=== PATIENT | male | born 1940 | race Caucasian/White ===

== ENCOUNTER 2023-07-27 10:26 | Emergency (ER) | payer OTHER, SELFPAY ==
[2023-07-27 10:33] VITALS: BP 147/64
--- NOTE | 2023-07-27 10:36 | ED.GENMED ---
History of Present Illness
General
Chief Complaint: Musculo-Skeletal Complaint
Time Seen by Provider: 07/27/23 10:28
History of Present Illness
History of Present Illness:
82-year-old male with history of dementia, hypertension, and hyperlipidemia arrives via EMS for evaluation after a fall. No further historical details were provided by the EMS crew and the patient cannot provide any details. He states 'I just went
down'. Laughing frequently on exam, unable to provide any further details. He denies any pain. There is a clear external rotation of the right lower extremity
Review of Systems
Review of Systems
Allergies reviewed?: Yes
Unable to obtain full review of systems at this time due to: dementia
Phy Exam
Physical Exam
Physical Exam:
GEN: Well appearing, NAD, WDWN
Eyes: PERRLA, EOMs intact, no scleral icterus
HENT: NCAT, oral mucosa moist, no JVD, no cervical adenopathy.
Lungs: CTAB, no wheezes, rales, rhonchi, normal chest wall excursion
Cardiac: RRR, no M/R/G, no peripheral edema. Radial pulses 2+ bilat
Abdomen: S, NT, ND, NABS, no masses or hepatosplenomegaly
Neuro: Alert, follows commands, profoundly disoriented
MSK: External rotation of the right lower extremity with diffuse swelling of the proximal right knee, patient with no response to pain on palpation
Skin: No rashes, petechiae. Normal color, no pallor or jaundice.
Psych: Calm, cooperative, proper hygiene
Course
Orders/Labs/Results
Orders:
Orders
07/27/23 10:35
CT Head W/o Iv Contrast Urgent
Comment:
Reason For Exam: fall
CR Chest Single View Urgent
Comment:
Reason For Exam: fall
CR Femur - Right Min 2 Vw Urgent
Comment:
Reason For Exam: fall, RLE deformity
CR Hip - RT w/wo Pel 2-3 Vw* Urgent
Comment:
Reason For Exam: fall, RLE deformity
Include a pelvis x-ray?: Yes
07/27/23 12:03
Complete Blood Count/With Diff Urgent
Comprehensive Metabolic Panel Urgent
07/27/23 12:24
CR Knee- Right 4 Or More View* Urgent
Comment:
Reason For Exam: fall
Abnormal Lab Results
07/27/23
12:03
WBC 12.5 H 10^3/uL
(4.8-10.8)
RBC 4.37 L 10^6/uL
(4.70-6.10)
Hct 38.7 L %
(39.0-52.0)
MCH 31.1 H pg
(27.0-31.0)
Absolute Neuts (auto) 9.9 H 10^3/uL
(1.4-6.5)
Absolute Monos (auto) 1.0 H 10^3/uL
(0.1-0.6)
Neutrophils % 78.6 H %
(42.2-75.2)
Lymphocytes % 10.9 L %
(20.5-51.1)
BUN 31 H mg/dl
(9-20)
Glucose 105 H mg/dl
(70-99)
Total Bilirubin 2.2 H mg/dl
(0.2-1.3)
07/27/23 12:03
07/27/23 12:03
Vital Signs
Initial and Last Documented VS:
Initial Vital Signs
Temp Pulse Resp BP Pulse Ox
98.1 F 69 20 147/64 95
07/27/23 10:33 07/27/23 10:33 07/27/23 10:33 07/27/23 10:33 07/27/23 10:33
Last Documented Vital Signs
Temp Pulse Resp BP Pulse Ox
98.1 F 69 20 165/71 83
07/27/23 10:33 07/27/23 10:33 07/27/23 10:33 07/27/23 15:45 07/27/23 15:46
MDM/Problems Addressed
MDM/Problems Addressed:
History is not obtained from the patient as he can provide essentially no details of the. Imaging reveals no major acute injuries with the exception of a nondisplaced right patellar fracture. Discussed the findings with orthopedics, patient will
be placed in a knee immobilizer, strictly advised his nursing facility that he must maintain this at all times until orthopedic follow-up in 1 week
*Critical Care Note
Total Time (30-74mins, 75-104mins- exclusive of procedures): Not Applicable
ED Attending Note
-
Portions of this chart may have been created with voice recognition software.� Occasional wrong word or��sound alike� substitutions may have occurred due to the inherent limitations of voice recognition software.
Discharge Plan
Departure
Patient Disposition: Home (Routine Discharge)
Date of Disposition: 07/27/23
Time of Disposition: 15:31
Patient with high blood pressure during this ER visit?: No
Discharge Problem:
Closed nondisplaced fracture of right patella
Instructions: Patella Fracture (DC)
Prescriptions:
No Action
acetaminophen [Tylenol] 325 mg Tablet
650 mg PO Q8HPRN PRN (Reason: MILD PAIN)
atorvastatin [Lipitor] 20 mg Tablet
20 mg PO DAILY
cyanocobalamin (vitamin B-12) 1,000 mcg Tablet
1,000 mcg PO DAILY
therapeutic multivitamin Tablet
1 tab PO DAILY
calcium carbonate [Calcium 600] 600 mg calcium (1,500 mg) Tablet
600 mg PO DAILY
amlodipine [Norvasc] 10 mg Tablet
10 mg PO .DAILY AT 8PM
folic acid 1 mg Tablet
1 mg PO DAILY
sertraline 50 mg Tablet
75 mg PO DAILY
Refresh Optive 0.5-0.9 % Drops
1 drp BOTH EYES BIDPRN PRN (Reason: DRYNESS)
lisinopril-hydrochlorothiazide 20-25 mg Tablet
1 tab PO DAILY
furosemide 20 mg Tablet
20 mg PO .DAILY MOTUWETHFR
ipratropium-albuterol 0.5 mg-3 mg(2.5 mg base)/3 mL Solution For Nebulization
3 ml inhalation R Q4HPRN PRN (Reason: SOB or wheezing) Qty: 90 1RF
Referrals:
Karl Trivedi MD [Active] - Follow up in 1 week
Activity Restrictions/Additional Instructions:
Needs to follow up with Orthopedics in 1 week for re-evaluation
Must wear knee immobilizer at all times
Interventions
Interventions:
*Risk Screen - Suicide Last Done: 07/27/23 10:33
*General Assessment Last Done: 07/27/23 10:33
*Neglect/Abuse Screening Last Done: 07/27/23 10:33
ED- Fall Risk Assessment Last Done: 07/27/23 10:33
*ED COVID-19 Vaccine History Last Done: 07/27/23 10:33
ED-Musculoskeletal Assessment Last Done: 07/27/23 10:33
[2023-07-27 11:36] VITALS: BP 145/74
[2023-07-27 12:00] VITALS: BP 156/61
[2023-07-27 12:22] LABS: % Basophils 0.2 % (0-2); % Eosinophils 1.7 % (0-6); % Immature Granulocytes 0.3 % (0-0.5); % Lymphocytes 10.9 % (20.5-51.1); % Monocytes 8.3 % (1.7-9.3); % Neutrophils 78.6 % (42.2-75.2); Absolute Eosinophils 0.2 10^3/uL (0-0.7); Absolute Lymphocytes 1.4 10^3/uL (1.2-3.4); Absolute Neutrophils 9.9 10^3/uL (1.4-6.5); Hematocrit 38.7 % (39.0-52.0); Hemoglobin 13.6 g/dL (13.0-18.0); Mean Corp Hgb Conc. 35.1 g/dL (33.0-37.0); Mean Corpuscular Hgb 31.1 pg (27.0-31.0); Mean Corpuscular Volume 88.6 fL (80.0-94.0); Mean Platelet Volume 9.3 fL (7.4-10.4); Nucleated Red Blood Cells % 0 % (-); Platelet Count 158 10^3/uL (130-400); Red Blood Cell Count 4.37 10^6/uL (4.70-6.10); Red Cell Dist. Width 12.7 % (11.5-14.5); White Blood Cell Count 12.5 10^3/uL (4.8-10.8)
[2023-07-27 12:32] LABS: ALT (SGPT) 28 U/L (0-50); AST (SGOT) 45 U/L (17-59); Albumin 4.3 g/dl (3.5-5.0); Alkaline Phosphatase 72 U/L (38-126); Blood Urea Nitrogen 31 mg/dl (9-20); Calcium 9.2 mg/dl (8.4-10.2); Carbon Dioxide 28 mmol/L (22-30); Chloride 99 mmol/L (98-107); Estimated Creatinine Clearance 71 ml/min; Glucose 105 mg/dl (70-99); Potassium 3.6 mmol/L (3.5-5.1); Sodium 135 mmol/L (135-145); Total Bilirubin 2.2 mg/dl (0.2-1.3); Total Protein 7.3 g/dl (6.3-8.2); eGFR > 60.00
[2023-07-27 13:18] VITALS: BP 148/68
[2023-07-27 15:45] VITALS: BP 165/71
== END 2023-07-27 17:29 | disposition home or self-care (01) ==
LOC: EMR 10:26
PROVIDERS: Physician Assistant; EMERGENCY PHYSICIAN Emergency Medicine
DX: S82.091A Other fracture of right patella, initial encounter for closed fracture (principal); W19.XXXA Unspecified fall, initial encounter; I10 Essential (primary) hypertension; E78.5 Hyperlipidemia, unspecified
CPT/HCPCS: 29505; 70450; 71045; 73502; 73552; 73564; 80053; 85025; 99283

== ENCOUNTER 2023-09-27 09:45 | Emergency (ER) | payer OTHER, SELFPAY ==
[2023-09-27 10:00] VITALS: BP 121/66
[2023-09-27 10:02] VITALS: BP 121/66
[2023-09-27 10:17] LABS: % Basophils 0.1 % (0-2); % Eosinophils 0.9 % (0-6); % Immature Granulocytes 0.4 % (0-0.5); % Lymphocytes 7.5 % (20.5-51.1); % Monocytes 4.1 % (1.7-9.3); Absolute Eosinophils 0.1 10^3/uL (0-0.7); Absolute Lymphocytes 0.8 10^3/uL (1.2-3.4); Absolute Monocytes 0.4 10^3/uL (0.1-0.6); Absolute Neutrophils 8.8 10^3/uL (1.4-6.5); Hematocrit 36.8 % (39.0-52.0); Hemoglobin 12.6 g/dL (13.0-18.0); Mean Corp Hgb Conc. 34.2 g/dL (33.0-37.0); Mean Corpuscular Hgb 30.6 pg (27.0-31.0); Mean Corpuscular Volume 89.3 fL (80.0-94.0); Mean Platelet Volume 8.8 fL (7.4-10.4); Nucleated Red Blood Cells % 0 % (-); Platelet Count 259 10^3/uL (130-400); Red Blood Cell Count 4.12 10^6/uL (4.70-6.10); Red Cell Dist. Width 12.7 % (11.5-14.5); White Blood Cell Count 10.1 10^3/uL (4.8-10.8)
[2023-09-27 10:31] LABS: ALT (SGPT) 25 U/L (0-50); AST (SGOT) 25 U/L (17-59); Albumin 3.6 g/dl (3.5-5.0); Alkaline Phosphatase 87 U/L (38-126); Blood Urea Nitrogen 22 mg/dl (9-20); Calcium 8.9 mg/dl (8.4-10.2); Carbon Dioxide 29 mmol/L (22-30); Chloride 104 mmol/L (98-107); Glucose 124 mg/dl (70-99); Sodium 136 mmol/L (135-145); Total Bilirubin 1.2 mg/dl (0.2-1.3); Total Protein 6.4 g/dl (6.3-8.2); eGFR > 60.00
--- NOTE | 2023-09-27 10:40 | ED.GENMED ---
History of Present Illness
<Mechelle Horn [facility] - Last Filed: 09/27/23 13:28>
General
Chief Complaint: Seizure
Source: patient
Exam Limitations: dementia
Time Seen by Provider: 09/27/23 10:15
Travel History
Have you had any contact with someone who has COVID-19?: Unable to Answer
Do you have any symptoms of coronavirus? Fever > 100 degrees, chills, cough, shortness of breath, sore throat, loss of taste or smell, muscle aches, or headache?: Unable to Answer
History of Present Illness
History of Present Illness:
Patient is an 82 year old male with PMH of dementia and HTN reports seizure at [facility] this morning. Patient reports loss of consciousness for an unknown amount of time. Patient reports vomiting on himself. Patient denies head trauma.
He denies previous episodes like this. He reports he is back to his baseline. Denies headache, changes in vision, weakness, tingling.
Phy Exam
<Mechelle Horn [facility] - Last Filed: 09/27/23 13:28>
General Physical Exam
General Presentation: well appearing
General age: appears stated age
General Skin: warm
General Habitus: normal
General Mental: usual mental status
General Hydration: appears well hydrated
Neurological Exam
Neurological Exam: alert (at baseline), CN II-XII intact, no motor deficits, no sensory deficits, speech normal and confused
Course
<Mechelle Horn [facility] - Last Filed: 09/27/23 13:28>
Orders/Labs/Results
Orders:
Orders
09/27/23 09:47
CT Head W/o Iv Contrast Urgent
Comment:
Reason For Exam: seizure
09/27/23 10:02
Complete Blood Count/With Diff Urgent
Comprehensive Metabolic Panel Urgent
Abnormal Lab Results
09/27/23
10:02
RBC 4.12 L 10^6/uL
(4.70-6.10)
Hgb 12.6 L g/dL
(13.0-18.0)
Hct 36.8 L %
(39.0-52.0)
Absolute Neuts (auto) 8.8 H 10^3/uL
(1.4-6.5)
Absolute Lymphs (auto) 0.8 L 10^3/uL
(1.2-3.4)
Neutrophils % 87.0 H %
(42.2-75.2)
Lymphocytes % 7.5 L %
(20.5-51.1)
BUN 22 H mg/dl
(9-20)
Glucose 124 H mg/dl
(70-99)
09/27/23 10:02
09/27/23 10:02
Vital Signs
Initial and Last Documented VS:
Initial Vital Signs
Pulse Resp
57 20
09/27/23 09:55 09/27/23 09:55
Last Documented Vital Signs
Temp Pulse Resp BP Pulse Ox
97.7 F 68 24 121/66 96
09/27/23 10:02 09/27/23 12:00 09/27/23 12:00 09/27/23 10:02 09/27/23 11:45
<Jacky Beaver, - Last Filed: 09/27/23 13:46>
Orders/Labs/Results
Orders:
Orders
09/27/23 09:47
CT Head W/o Iv Contrast Urgent
Comment:
Reason For Exam: seizure
09/27/23 10:02
Complete Blood Count/With Diff Urgent
Comprehensive Metabolic Panel Urgent
Abnormal Lab Results
09/27/23
10:02
RBC 4.12 L 10^6/uL
(4.70-6.10)
Hgb 12.6 L g/dL
(13.0-18.0)
Hct 36.8 L %
(39.0-52.0)
Absolute Neuts (auto) 8.8 H 10^3/uL
(1.4-6.5)
Absolute Lymphs (auto) 0.8 L 10^3/uL
(1.2-3.4)
Neutrophils % 87.0 H %
(42.2-75.2)
Lymphocytes % 7.5 L %
(20.5-51.1)
BUN 22 H mg/dl
(9-20)
Glucose 124 H mg/dl
(70-99)
09/27/23 10:02
09/27/23 10:02
Vital Signs
Initial and Last Documented VS:
Initial Vital Signs
Pulse Resp
57 20
09/27/23 09:55 09/27/23 09:55
Last Documented Vital Signs
Temp Pulse Resp BP Pulse Ox
97.7 F 68 24 121/66 96
09/27/23 10:02 09/27/23 12:00 09/27/23 12:00 09/27/23 10:02 09/27/23 11:45
ED Attending Note
<ZAK Romero - Last Filed: 09/27/23 13:28>
-
Portions of this chart may have been created with voice recognition software.� Occasional wrong word or��sound alike� substitutions may have occurred due to the inherent limitations of voice recognition software.
<Jacky Beaver DO - Last Filed: 09/27/23 13:46>
ED Attending Note
Patient seen and examined by attending physician: Yes
I performed a history and physical exam of patient and discussed management with resident, I reviewed resident's note and agree with documented findings and plan of care.: Yes
ED Attending Note:
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 Patient Is reportedly back to his baseline at this time. Patient denies
headache, neck or back pain. Patient denies chest or abdominal pain. Patient denies feeling short of breath. Patient denies fever or chills. Patient denies any GI or symptoms. Patient denies any extremity pain. On physical exam patient
neurologically is intact except for disorientation due to dementia. Patient does have frontal release signs. Heart is regular lungs are clear. Abdomen soft nontender. Patient CT is unremarkable. Patient's labs are unremarkable. Patient appears
to have an seizure or syncopal episode and will be sent back to assisted.
Discharge Plan
Departure
Patient Disposition: Long Term/SNF
Date of Disposition: 09/27/23
Time of Disposition: 13:44
Patient with high blood pressure during this ER visit?: No
Condition: Good
Covid-19: Not Applicable
Discharge Problem:
Syncope, Dementia
Instructions: Seizures, Adult (DC), Syncope (Fainting) (DC)
Prescriptions:
No Action
acetaminophen [Tylenol] 325 mg Tablet
650 mg PO Q6H PRN (Reason: mild pain)
atorvastatin [Lipitor] 20 mg Tablet
20 mg PO DAILY
amlodipine [Norvasc] 10 mg Tablet
10 mg PO QPM
folic acid 1 mg Tablet
1 mg PO DAILY
sertraline 50 mg Tablet
75 mg PO DAILY
lisinopril-hydrochlorothiazide 20-25 mg Tablet
1 tab PO DAILY
furosemide 20 mg Tablet
20 mg PO DAILY
multivitamin [Daily-Alysa] Tablet
1 tab PO DAILY
cyanocobalamin (vitamin B-12) [Vitamin B-12] 1,000 mcg Tablet
1,000 mcg PO DAILY
calcium carbonate [Calcium 600] 600 mg calcium (1,500 mg) Tablet
600 mg PO DAILY
carboxymethylcellulose sodium [Refresh Tears] 0.5 % Drops
1 drp BOTH EYES DAILY PRN (Reason: dry eyes)
Referrals:
Anna Elias, DO [Family Provider] - As needed
Activity Restrictions/Additional Instructions:
Continue present medications and therapy.
Interventions
Interventions:
*Risk Screen - Suicide Last Done: 09/27/23 10:03
*General Assessment Last Done: 09/27/23 10:03
*Neglect/Abuse Screening Last Done: 09/27/23 10:03
*ED COVID-19 Vaccine History Last Done: 09/27/23 10:03
ED- Cardiac Assessment Last Done: 09/27/23 10:04
ED- Neurological Assessment Last Done: 09/27/23 10:04
ED- Pulmonary Assessment Last Done: 09/27/23 10:04
[2023-09-27 13:46] VITALS: BP 119/69
[2023-09-27 14:00] VITALS: BP 126/66
== END 2023-09-27 15:51 ==
LOC: EMR 09:45
PROVIDERS: EMERGENCY PHYSICIAN Emergency Medicine; FAMILY PHYSICIAN Hospitalist
DX: R55 Syncope and collapse (principal); I10 Essential (primary) hypertension; F03.90 Unspecified dementia, unspecified severity, without behavioral disturbance, psychotic disturbance, mood disturbance, and anxiety
CPT/HCPCS: 99285; 70450; 80053; 85025; 93005

== ENCOUNTER 2023-09-28 18:43 | Observation (INO) | payer OTHER, SELFPAY ==
[2023-09-28] VITALS (8 sets, daily range): BP systolic 120–149; BP diastolic 64–76; BMI 34.7
--- NOTE | 2023-09-28 15:54 | ED.GENMED ---
History of Present Illness
General
Chief Complaint: Vomiting Blood
Source: patient and records
Time Seen by Provider: 09/28/23 15:34
Travel History
Have you had any contact with someone who has COVID-19?: Unable to Answer
Do you have any symptoms of coronavirus? Fever > 100 degrees, chills, cough, shortness of breath, sore throat, loss of taste or smell, muscle aches, or headache?: Unable to Answer
History of Present Illness
History of Present Illness:
This patient is an 82-year-old male who was seen in the emergency department yesterday with suspected seizure. His workup was unremarkable and he went home. Today, he reportedly had an episode of bright red blood emesis. Medics were called.
Medics report he had another episode of bright red blood emesis on transport. Vitals were stable. When asked about the volume, they describe and points to the sheet that they brought with him to covered. Patient denies any complaints. He denies
abdominal pain, chest pain, dyspnea. He denies having hematemesis in the past.
Past History
Past History
ED Past Medical History: HTN and Other (Possible seizure September 2023)
Social History
Drug: None
Living: assisted living
Phy Exam
Physical Exam
Physical Exam:
GENERAL: Alert , in no apparent distress
EYE: pupils equal and reactive, conj pink
NECK: Supple, no significant adenopathy.
ENT: o/p clr, mmm, dried red substance around lips.
CARDIAC: Regular rate and rhythm .
LUNGS: Clear breath sounds bilaterally, no acute respiratory distress, no wheezes/rales/rhonchi
ABDOMEN: Soft, without focal tenderness, no r/g
NEUROLOGICAL: Alert and oriented to person and place only, no focal neuro deficits
SKIN: Warm and dry, skin intact.
MUSCULOSKELETAL: No edema, well perfused.
PSYCH: Normal and appropriate interaction.
RECTAL: Juliana RN present, heme neg brown stool
Course
Orders/Labs/Results
Orders:
Orders
09/28/23 Dinner
Clear Liquid
At Your Request: Non-Participating
Does patient need a safe tray?: No
NPO
Allow oral meds: Yes
Allow clear liquids: No
NPO with Ice Chips: No
09/28/23 15:52
Cardiac Monitoring- Treatment ONCE
IV Insert/Care/Rem.- Treatment PRN
0.9% Sodium Chloride 500 ml [Nss] 500 ml IV BOLUS
Pantoprazole 80 mg/100 ml Nss [Protonix] 80 mg in 100 ml IV NOW
Pantoprazole [Protonix IV] 80 mg IV NOW STA
Pulse Ox/cont/shift [RESP] Stat
Quantity: 1
09/28/23 15:53
Electrocardiogram (*1) Stat
Reason for Study: Other
Other Reason for Exam: GI Bleed
EKG- Treatment ONCE
09/28/23 16:00
Type+Screen Urgent
Complete Blood Count/No Diff Urgent
Comprehensive Metabolic Panel Urgent
Lipase Urgent
Magnesium Urgent
Comment: ADD ON
PTT Urgent
Prothrombin Time Urgent
09/28/23 17:16
CXR2 [CR Chest - 2 Views ] Stat
Comment:
Reason For Exam: gib
09/28/23 17:56
GASTROINTESTINAL CONSULT Routine
Consulting Provider: Ngoc Astudillo
Was physician already notified: Yes
Reason for consult: upper gi bleed reported bright red emesis
09/28/23 17:58
Admit/Transfer Patient As Directed
Co-Sign Provider:
Level of Care: Observation services
Assign to:: Medical/Surgical
Physician / Group: nasra raymond
Diagnosis: upper gi bleed
Code Status As Directed
Resuscitation Status: Do not resuscitate
Reached after discussion with pt or family/Healthcare POA: Yes
Based on pt advanced directive or healthcare POA form: Yes
Decision communicated with: per senior living paperwork
DNR Bracelet Application ONCE
09/28/23 18:15
0.9% Sodium Chloride 1000 ml [Nss] 1,000 ml IV 60 mls/hr
09/28/23 18:17
Add On- LAB Routine
Tests Added?: magnesium
Potassium Chloride [KCl] 40 meq 0.9% Sodium Chloride 250 ml [Nss] 250 ml IV NOW
09/28/23 18:20
Abdomen Xray - 1 View [CR Abdomen - 1 View] Urgent
Comment:
Reason For Exam: vomiting bright red emesis
09/28/23 19:22
Metoclopramide [Reglan] 5 mg IV Q8HPRN PRN
Prochlorperazine [Compazine] 5 mg IV Q6HPRN PRN
09/28/23 19:22
Activity As Directed
Activity Level: As Tolerated
Pneumatic Compression Sleeves As Directed
Type: Knee high
Vital Signs As Directed
Frequency: Per unit guidelines
Ot Eval And Treat Routine
Pt Eval And Treat Routine
Activity Level: As Tolerated
DX Deep Vein Thrombosis Video Routine
09/28/23 19:27
Carboxymethylcellulose [Refresh Celluvisc Gel] 1 drops BOTH EYES DAILYPRN PRN
09/29/23 02:00
Pantoprazole 80 mg/100 ml Nss [Protonix] 80 mg in 100 ml IV Q10H
09/29/23 04:58
Basic Metabolic Panel IN AM
Complete Blood Count/With Diff IN AM
09/29/23 08:00
Atorvastatin [Lipitor] 20 mg PO DAILY
Cyanocobalamin [Vitamin B-12] 1,000 mcg PO DAILY
FOLic ACID [Folvite] 1 mg PO DAILY
Sertraline HCl [Zoloft] 75 mg PO DAILY
09/29/23 18:00
Amlodipine [Norvasc] 10 mg PO QPM
09/30/23 07:55
Basic Metabolic Panel IN AM
Complete Blood Count/With Diff IN AM
Abnormal Lab Results
09/28/23
16:00
RBC 4.49 L 10^6/uL
(4.70-6.10)
Potassium 3.1 L mmol/L
(3.5-5.1)
BUN 29 H mg/dl
(9-20)
Glucose 131 H mg/dl
(70-99)
Total Protein 6.1 L g/dl
(6.3-8.2)
Albumin 3.3 L g/dl
(3.5-5.0)
09/28/23 16:00
09/28/23 16:00
Vital Signs
Initial and Last Documented VS:
Initial Vital Signs
Pulse Resp BP Pulse Ox
74 16 128/72 90
09/28/23 15:39 09/28/23 15:39 09/28/23 15:39 09/28/23 15:39
Last Documented Vital Signs
Temp Pulse Resp BP Pulse Ox
98.2 F 58 16 155/70 96
09/30/23 07:30 09/30/23 07:30 09/30/23 07:30 09/30/23 07:30 09/30/23 07:30
*Critical Care Note
Total Time (30-74mins, 75-104mins- exclusive of procedures): Not Applicable
Update Note
Update Note:
Patient presents to the Emergency Department with reported hematemesis
Number and Complexity of Problems Addressed at the Encounter
� Chronic conditions affecting care:
� Acute Exacerbation and/or Progression of Chronic Illness:
� Differential Diagnosis includes: but not limited to intraoral bleed, variceal bleed, gastritis, gastric ucler, etc.
Amount and/or Complexity of Data to be Reviewed and Analyzed
� I performed an independent evaluation of and my interpretation is:
EKG:
CT:
Xrays:
Laboratory Studies:
Other:
� Review of other/old records reveals: Patient admitted July 2023 with patella fracture at that time secondary diagnosis of hypertension hyperlipidemia and dementia only. I do not see anticoagulant status medication last
� Clinical information was obtained by an independent historian:
� Prescriptions/Medications Considered but not given:
� Further testing considered but not performed:
Risk of Complications and/or Morbidity or Mortality of Patient Management
� Social determinants of health affecting care:
� Discussion with other providers (PCP, Hospitalists, Consultants, etc):
� Escalation of care including admission/observation vs risk of discharge considered: 3:58 PM patient laughing at times, very pleasant, in no distress, nontoxic. Gentle fluid bolus judiciously ordered given patient takes Lasix.
Blood pressure stable. Labs pending.
407 pm case d/w staff at [facility], patient reportedly was vomiting yesterday and had seizure-like activity before coming here. Today, he had a 'large' amount of coffee-ground emesis. The paperwork also describes patient vomiting blood but she cannot
clarify if this was bright red blood or if that is referring to the coffee-ground emesis. Patient confirmed not to be on anticoagulation.
517pm Case d/w hospitalist for admission/obs via TT. No further vomiting, here. Pt has hadintermittent episodes of pox 88%, but then 'comes right back up' as per RN. Not tachypneic, not c/o sob, no resp distress, lungs cta. Highly doubt pe or
toher acute pathology. cxr ordered.
ED Attending Note
-
Portions of this chart may have been created with voice recognition software.� Occasional wrong word or��sound alike� substitutions may have occurred due to the inherent limitations of voice recognition software.
Discharge Plan
Departure
Patient Disposition: Admit
Date of Disposition: 09/28/23
Time of Disposition: 17:17
Admit to: Telemetry
Presentation/result/management discussed w/ accepting MD/DO: Hospitalist
Condition: Fair
Discharge Problem:
Hematemesis
Interventions
Interventions:
*Risk Screen - Suicide Last Done: 09/28/23 15:34
*General Assessment Last Done: 09/28/23 15:34
*Neglect/Abuse Screening Last Done: 09/28/23 15:34
ED- Fall Risk Assessment Last Done: 09/28/23 19:18
*ED COVID-19 Vaccine History Last Done: 09/28/23 15:34
*Nursing Disposition Last Done: 09/28/23 19:19
JN-[id number]-[id number] Assessment Last Done: 09/28/23 15:45
ED- Cardiac Assessment Last Done: 09/28/23 15:45
ED- Pulmonary Assessment Last Done: 09/28/23 15:45
Discharge Date and Time
Discharge Date/Time: 09/28/23 19:19
[2023-09-28] MEDS: NSS 500 IV (16:03)
[2023-09-28] MEDS: PROTONIX IV 80 MG IV (16:03)
[2023-09-28] MEDS: PROTONIX 100 IV (16:05)
[2023-09-28 16:09] LABS: Hematocrit 39.7 % (39.0-52.0); Hemoglobin 13.8 g/dL (13.0-18.0); Mean Corp Hgb Conc. 34.8 g/dL (33.0-37.0); Mean Corpuscular Hgb 30.7 pg (27.0-31.0); Mean Corpuscular Volume 88.4 fL (80.0-94.0); Mean Platelet Volume 8.9 fL (7.4-10.4); Platelet Count 245 10^3/uL (130-400); Red Blood Cell Count 4.49 10^6/uL (4.70-6.10); Red Cell Dist. Width 12.9 % (11.5-14.5)
[2023-09-28 16:27] LABS: INR 0.99; PT 13.1 Sec (11.4-14.6)
[2023-09-28 16:28] LABS: ALT (SGPT) 21 U/L (0-50); APTT 27.4 Sec (23.4-35.0); AST (SGOT) 30 U/L (17-59); Albumin 3.3 g/dl (3.5-5.0); Alkaline Phosphatase 77 U/L (38-126); Blood Urea Nitrogen 29 mg/dl (9-20); Calcium 8.7 mg/dl (8.4-10.2); Carbon Dioxide 28 mmol/L (22-30); Chloride 99 mmol/L (98-107); Glucose 131 mg/dl (70-99); Potassium 3.1 mmol/L (3.5-5.1); Sodium 137 mmol/L (135-145); Total Bilirubin 1.3 mg/dl (0.2-1.3); Total Protein 6.1 g/dl (6.3-8.2); eGFR > 60.00
[2023-09-28 16:29] LABS: Lipase 106 U/L (23-300)
--- NOTE | 2023-09-28 17:22 | HPS.HSE ---
Family Physician
<LITA Herman - Last Filed: 09/28/23 18:07>
-
Family Physician: Hans Morales
Chief Complaint
<LITA Herman - Last Filed: 09/28/23 18:07>
-
Vomiting bright red blood today
History of Present Illness
82-year-old male from local dementia unit who was seen here yesterday in the ER 09/27/2023 for tonic-clonic seizure at breakfast with loss of consciousness and vomiting on himself. He came to ER for evaluation and apparently was back at baseline and
discharged with seizure vs syncope . He returns today in the ER for bright red emesis at the dementia unit and another episdode in route to the hospital. He reports he remembers vomiting bright red blood approximately 2-3 times, although denies
any current nausea, abdominal pain, headache, dizziness, chest pain, palpitations, diarrhea, urinary symptoms. He is oriented to first and last name only.
He has past medical history of dementia, HTN, patellar fracture right July 2023.
Medical History
<LITA Herman - Last Filed: 09/28/23 18:07>
Past Medical History
Past Medical History: Reports Dementia, HTN and Hypercholesterolemia
Past Surgical History: Reports Other (unable to obtain due to dementia)
Social History
Unable to obtain full social history at this time due to: Dementia
Tobacco: Non-smoker
Drug: None
Personal: Single
Living: Assisted Living (Dementia unit at [facility])
Employment: Retired
Family History
Family History: Unable to Obtain (Due to patient dementia)
Allergies / Home Medications
Allergies reflects when Allergies were last updated in [employer].
Home Medications with original date entered in [employer]
Allergy/Medication List:
Allergies
Allergy/AdvReac Type Severity Reaction Status Date / Time
No Known Allergies Allergy Verified 09/28/23 15:43
Home Medications
acetaminophen 325 mg tablet (Tylenol) 650 mg PO Q6H PRN mild pain 02/17/23
amlodipine 10 mg tablet (Norvasc) 10 mg PO QPM Blood Pressure 02/17/23
atorvastatin 20 mg tablet (Lipitor) 20 mg PO DAILY High Cholesterol 02/17/23
folic acid 1 mg tablet 1 mg PO DAILY Supplement 02/17/23
furosemide 20 mg tablet 20 mg PO DAILY Fluid Retention/Swelling 02/17/23
lisinopril 20 mg-hydrochlorothiazide 25 mg tablet 1 tab PO DAILY Blood Pressure 02/17/23
sertraline 50 mg tablet 75 mg PO DAILY Mental Health/Anxiety 02/17/23
calcium carbonate 600 mg calcium (1,500 mg) tablet (Calcium) 600 mg PO DAILY Supplement 07/27/23
carboxymethylcellulose sodium 0.5 % eye drops (Refresh Tears) 1 drp BOTH EYES DAILY PRN dry eyes 07/27/23
cyanocobalamin (vitamin B-12) 1,000 mcg tablet (Vitamin B-12) 1,000 mcg PO DAILY Supplement 07/27/23
multivitamin (Daily-Alysa tablet) 1 tab PO DAILY Supplement 07/27/23
Review of Systems
Aidalt;LITA Herman - Last Filed: 09/28/23 18:07>
-
History Source: Patient, [facility] and Ambulance Crew
A 12 point ROS was completed and negative except as noted: Yes
Constitutional: Denies Fever, Fatigue or Chills
EENT: Denies Sore Throat or Runny Nose
Respiratory: Denies Cough or Trouble Breathing
Cardiac: Denies Chest Pain, Diaphoresis or Palpitations
Abdomen/GI: Reports Vomiting (Bright red); Denies Abdominal Pain, Diarrhea, Constipated, Bloody Stools or Black Stools
: Denies Dysuria, Frequency, Flank Pain, Incontinence or Difficulty Voiding
Musculoskeletal: Denies Joint Pain or Edema
Skin: Denies Itching or Rash
Neurological: Denies Dizzy, Headache or Weakness
Endocrine: Reports No Symptoms
Hematologic/Lymphatic: Reports No Symptoms
Psych: Reports Calm
Physical Exam
<LITA Herman - Last Filed: 09/28/23 18:07>
Vital Signs
Vital Signs
Pulse Resp BP Pulse Ox
72 16 128/72 90
09/28/23 15:41 09/28/23 15:41 09/28/23 15:39 09/28/23 15:41
Physical Exam
General: Comfortable and Conversant; No Pain, Fever or Chills
HEENT: NormoCephalic, Anicteric, Moist mucous membranes, PERRLA, [place] Conjunctivae, No Ptosis and Other (no blood or cuts appreciated intra oral)
Respiratory: Clear; No Wheezes, Rales or Rhonchi
Cardiac: S1/S2 and Regular Rhythm; No Murmur, Rub, Gallop or Peripheral Edema
Breast: Deferred by me
GI: Soft, Non Tender, Non Distended, Normal Bowel Sounds and No Hepatosplenomegaly
Rectal: Deferred by Provider
Genito-urinary: Deferred by me
Musculoskeletal: No Clubbing, No Cyanosis and No Edema
Skin: Warm; No Rash or Jaundice
Neuro: Awake, Alert, Oriented (To first and last name only and brief review of systems) and Other (Chronic hard of hearing); No Slurred Speech, Facial Droop or Tremors
Psych: Calm
Laboratory Results
<LITA Herman - Last Filed: 09/28/23 18:07>
-
09/28/23 16:00
09/28/23 16:00
Laboratory Results
PT 13.1 Sec (11.4-14.6) 09/28/23 16:00
INR 0.99 09/28/23 16:00
APTT 27.4 Sec (23.4-35.0) 09/28/23 16:00
Total Bilirubin 1.3 mg/dl (0.2-1.3) 09/28/23 16:00
AST 30 U/L (17-59) 09/28/23 16:00
ALT 21 U/L (0-50) 09/28/23 16:00
Alkaline Phosphatase 77 U/L (38-126) 09/28/23 16:00
Lipase 106 U/L (23-300) 09/28/23 16:00
Impression/Plan
<LITA Herman - Last Filed: 09/28/23 18:07>
-
Impression/plan:
OBS MedSurg
#Vomiting bright red blood x 2 concern for Upper GI bleed
Hgb 13.8
-Type and screen
-Consult GI
Per GI Rec:
-Iv reglan 10 mg q8h prn vomiting
-check obst
-NPO
-IV PPI twice daily
- follow cbc
EKG: NSR 72 bpm, QTc 433 MS, flattened T waves inferior anterolateral leads
#Dementia with behavioral disturbance
#Anxiety
- cnnt Zoloft 75 mg daily
#HTN�benign
-Continue amlodipine 10 mg
-Hold lisinopril/HCTZ, hold furosemide
#HLD
-Continue continue Lipitor
#Hx right patellar fracture 07/27/2023
-Treated with knee immobilizer
DVT prophylaxis
SCDs
DNR per [facility] records
<Brad Jones DO - Last Filed: 09/28/23 18:16>
-
Impression/plan:
OBS MedSurg
#Vomiting bright red blood x 2 concern for Upper GI bleed
Hgb 13.8
-Type and screen
-Consult GI
Per GI Rec:
-Iv reglan 10 mg q8h prn vomiting
-check obst
-NPO
-IV PPI twice daily
- follow cbc
EKG: NSR 72 bpm, QTc 433 MS, flattened T waves inferior anterolateral leads
#Dementia with behavioral disturbance
#Anxiety
- cnnt Zoloft 75 mg daily
#HTN�benign
-Continue amlodipine 10 mg
-Hold lisinopril/HCTZ, hold furosemide
#HLD
-Continue continue Lipitor
#Hx right patellar fracture 07/27/2023
-Treated with knee immobilizer
DVT prophylaxis
SCDs
DNR per [facility] records
Attending note:
Patient seen and examined and discussed with NALINI Murcia, and I agree with her note.
Gen-no acute distress, awake, alert, not completely oriented, pleasantly confused.
HEENT-NC, AT, anicteric, clear oral mm
Neck-supple
CV-reg, no M, +S1/S2
Lungs-clear B/L
Abd-soft, NT, ND
Ext-no edema
Musculoskeletal-no cyanosis, clubbing
Skin-warm and dry
Neuro-grossly non-focal
Psych-calm, cooperative
Hematemesis/acute upper GI bleed -source unclear. No known history of GI bleed. Not on anticoagulation or antiplatelet agent. Hemodynamically stable. Admit to MedSurg, consult GI. Clear liquid diet, n.p.o. after midnight.
Heme check stools.
Hypokalemia -will replete. Check magnesium.
Recent ER visit for syncope versus seizure -September 27, 2023. Not discharged on antiepileptic. CT head done at the time was unremarkable.
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
Essential hypertension -stable.
Hyperlipidemia -on atorvastatin.
DNR
Left voicemail for patient's sister to call me back.
[2023-09-28] MEDS: KCL 270 MEQ IV (18:42)
[2023-09-28] MEDS: NSS 1000 IV (18:43)
[2023-09-28 19:43] LABS: Magnesium 1.8 mg/dl (1.6-2.3)
[2023-09-29] MEDS: PROTONIX 100 IV (02:32)
[2023-09-29 05:39] VITALS: BMI 34.7
[2023-09-29 06:12] LABS: % Basophils 0.2 % (0-2); % Eosinophils 0.3 % (0-6); % Immature Granulocytes 0.5 % (0-0.5); % Lymphocytes 13.9 % (20.5-51.1); % Monocytes 7.5 % (1.7-9.3); % Neutrophils 77.6 % (42.2-75.2); Absolute Lymphocytes 0.8 10^3/uL (1.2-3.4); Absolute Monocytes 0.5 10^3/uL (0.1-0.6); Absolute Neutrophils 4.6 10^3/uL (1.4-6.5); Hematocrit 35.5 % (39.0-52.0); Hemoglobin 11.9 g/dL (13.0-18.0); Mean Corp Hgb Conc. 33.5 g/dL (33.0-37.0); Mean Corpuscular Hgb 30.6 pg (27.0-31.0); Mean Corpuscular Volume 91.3 fL (80.0-94.0); Mean Platelet Volume 9.5 fL (7.4-10.4); Nucleated Red Blood Cells % 0 % (-); Platelet Count 190 10^3/uL (130-400); Red Blood Cell Count 3.89 10^6/uL (4.70-6.10); Red Cell Dist. Width 13.1 % (11.5-14.5)
[2023-09-29 06:33] LABS: Blood Urea Nitrogen 26 mg/dl (9-20); Carbon Dioxide 25 mmol/L (22-30); Chloride 104 mmol/L (98-107); Estimated Creatinine Clearance 76 ml/min; Glucose 92 mg/dl (70-99); Sodium 139 mmol/L (135-145); eGFR > 60.00
[2023-09-29 07:00] VITALS: BP 138/68
--- NOTE | 2023-09-29 09:16 | CON.GI ---
Addendum entered and electronically signed by Ngoc Astudillo DO 09/29/23 15:05:
patient seen and examined independently of LITA. Agree with her note with my additions below:
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 His exam is benign with no abdominal tenderness. He has a elias in with
bloody urine. Nursing at [place] said he had mulitple episodes of non-bloody emesis followed by red and had been acting unusual prior to admission.
Currently, he tolerated clears fine and denies any pain with deep palpation. I reviewed his abdominal xray that shows no obstruction.
He is not on blood thinners or NSAIDs and is not on a ppi outpatient.
Unclear GI history as he is demented but pleasant.
PLAN:
--- ok for diet and if tolerates it no further GI workup
-- would send him home on once daily ppi in the setting of the hematemesis
-- use anti-emetics if he gets nauseated
-- unclear the precipitating factor that led to the initial nausea and vomiting. Unclear if he has an infection source elsewhere. Discussed with hospitalist
Addendum entered and electronically signed by Chika Perales NP 09/29/23 10:54:
I spoke to the nurse at [facility] who reported that the patient had multiple episodes of vomiting with nonbloody emesis prior to the onset of red blood. She notes that he has been acting unusual prior to that leading to his initial ER evaluation on
09/27. She denies any administration of blood thinners or NSAIDs. He is on regular liquids at baseline.
Original Note:
Consultation
-
Date/Time Consultation Requested: 09/28/23 @ 17:56
Date/Time Consultation Performed: 09/29/23 @ 09:15
Requesting Provider: LITA Herman
Performing Provider: LITA Jones; Dr. Ngoc Astudillo
Reason for Consultation: upper gi bleed reported bright red emesis
Medical History
Chief Complaint / HPI
Chief Complaint: vomiting bright red blood
History of Present Illness:
The patient is an 82-year-old male with a past medical history significant for dementia, hypertension, hyperlipidemia, who presented to the emergency room with complaints of vomiting bright red blood. We are being asked to evaluate for concern for
upper GI bleed. Upon review of records, the patient had been seen in the ER on 09/27 with reported ?seizure versus syncope. He had reportedly vomited on himself and was found unresponsive. Upon evaluation in the emergency room he was back to
baseline and was discharged back to his nursing facility after his workup was unrevealing. He presented again yesterday with reports of vomiting blood at his nursing facility. The pt is only oriented to himself and not answering many questions
appropriately therefore history is limited. He denies any acute complaints. He is laughing at many of my questions. Per nursing he has not had any further vomiting. Hgb on admission was 13.8 with 2 g drop to 11.9 this morning. Other pertinent lab
findings include plt 190,000, INR 0.99, K 3.1, Na 137, BUN 29, Cr 1.0, lipase 106. XR of the abdomen did not show any obstructive process. Rectal exam in the ER showed brown heme negative stool. He was made NPO, started on PPI gtt, and admitted for
further evaluation by GI.
Past Medical History
Past Medical History: HTN, Hypercholesterolemia and Other (dementia, right patellar fracture, ambulatory dysfunction )
Past Surgical History: Other (unknown)
Social History
Tobacco: Non-Smoker
Alcohol: None
Drug: None
Living: Longterm
Family History
Family History: Unable to Obtain
Allergies / Home Medications
Allergy/AdvReac Type Severity Reaction Status Date / Time
No Known Allergies Allergy Verified 09/28/23 15:43
Medication Instructions Recorded
acetaminophen 325 mg tablet 650 mg PO Q6H PRN mild pain 02/17/23
(Tylenol)
amlodipine 10 mg tablet (Norvasc) 10 mg PO QPM Blood Pressure 02/17/23
atorvastatin 20 mg tablet (Lipitor) 20 mg PO DAILY High Cholesterol 02/17/23
folic acid 1 mg tablet 1 mg PO DAILY Supplement 02/17/23
furosemide 20 mg tablet 20 mg PO DAILY Fluid 02/17/23
Retention/Swelling
lisinopril 20 1 tab PO DAILY Blood Pressure 02/17/23
mg-hydrochlorothiazide 25 mg tablet
sertraline 50 mg tablet 75 mg PO DAILY Mental 02/17/23
Health/Anxiety
calcium carbonate 600 mg calcium 600 mg PO DAILY Supplement 07/27/23
(1,500 mg) tablet (Calcium)
carboxymethylcellulose sodium 0.5 1 drp BOTH EYES DAILY PRN dry eyes 07/27/23
% eye drops (Refresh Tears)
cyanocobalamin (vitamin B-12) 1,000 mcg PO DAILY Supplement 07/27/23
1,000 mcg tablet (Vitamin B-12)
multivitamin (Daily-Alysa tablet) 1 tab PO DAILY Supplement 07/27/23
Review of Systems
-
Unable to obtain full review of systems at this time due to: Dementia
Vital Signs
Temp Pulse Resp BP Pulse Ox
97.9 F 69 14 138/68 92
09/29/23 07:00 09/29/23 07:00 09/29/23 07:00 09/29/23 07:00 09/29/23 07:00
Physical Exam
Exam
General: Well Developed, Well Nourished and No Apparent Distress
HEENT: Normocephalic and Atraumatic
Respiratory: Clear
Cardiac: S1/S2 and Regular Rhythm
GI: Soft, Non Tender, Non Distended, Normal Bowel Sounds and Other (obese abdomen)
Rectal: Other (brown heme negative per ER)
Skin: Warm and Dry
Neuro: Awake, Alert and Other (oriented to self only)
Psych: Calm
Results
WBC 6.0 10^3/uL (4.8-10.8) 09/29/23 04:58
Hgb 11.9 g/dL (13.0-18.0) L 09/29/23 04:58
Hct 35.5 % (39.0-52.0) L 09/29/23 04:58
MCV 91.3 fL (80.0-94.0) 09/29/23 04:58
Plt Count 190 10^3/uL (130-400) D 09/29/23 04:58
Absolute Neuts (auto) 4.6 10^3/uL (1.4-6.5) 09/29/23 04:58
PT 13.1 Sec (11.4-14.6) 09/28/23 16:00
INR 0.99 09/28/23 16:00
APTT 27.4 Sec (23.4-35.0) 09/28/23 16:00
Sodium 139 mmol/L (135-145) 09/29/23 04:58
Potassium 3.0 mmol/L (3.5-5.1) L 09/29/23 04:58
Chloride 104 mmol/L (98-107) 09/29/23 04:58
Carbon Dioxide 25 mmol/L (22-30) 09/29/23 04:58
BUN 26 mg/dl (9-20) H 09/29/23 04:58
Creatinine 0.9 mg/dL (0.7-1.3) 09/29/23 04:58
Calcium 8.0 mg/dl (8.4-10.2) L 09/29/23 04:58
Total Bilirubin 1.3 mg/dl (0.2-1.3) 09/28/23 16:00
AST 30 U/L (17-59) 09/28/23 16:00
ALT 21 U/L (0-50) 09/28/23 16:00
Alkaline Phosphatase 77 U/L (38-126) 09/28/23 16:00
Lipase 106 U/L (23-300) 09/28/23 16:00
Diagnostic Image Results:
09/28/23 CXR: IMPRESSION: Cardiomegaly with no convincing evidence for pulmonary edema/active vascular congestion. Right lung opacity within both lower lungs, right greater than left, likely atelectasis
09/28/23 XR abdomen: No significant radiographic abnormality.
Prior GI Procedures:
EGD: unknown
Colonoscopy: unknown
Assessment / Plan
-
The patient is an 82-year-old male with a past medical history significant for dementia, hypertension, hyperlipidemia, who presented to the emergency room with complaints of vomiting bright red blood. We are being asked to evaluate for concern for
upper GI bleed. Events as noted above, presenting with several reported episodes of vomiting with ?bright red blood v coffee ground. Mild drop of hgb but no further vomiting. Brown heme neg stool in ER. PPI gtt started for concern of UGIB. He is
demented with limited history. Also noted with some hypoxia which has resolved.
Problem list:
#1: ?coffee ground v hematemesis; possible viral etiology v less likely UGIB (PUD v erosive gastritis/esophagitis) v obstructive process v other.
-Unclear if this was red or dark brown. Pt is unable to tell history but he has had no further vomiting. Unlikely acute GI bleed given stability and without recurrent vomiting with heme neg brown stool.
-XR abdomen was negative for obstruction
-Will await call back from nursing facility to clarify events
-OK for clear liquid diet (will verify if he is on any modified diets)
-Change PPI to IV BID
-Avoid NSAID's
-Will review with the pts sister Ree regarding any further work-up but with his advanced dementia and stable presentation EGD not warranted at this time. Left message for call back.
-Can consider UGI series if recurrent coffee ground emesis. Will review with Dr. Astudillo.
-Will follow
#2: Normocytic anemia
-Hgb with mild drop but stable
-Trend H/H
-Avoid blood thinning agents for now
#3: transient hypoxia; possible aspiration?
-CXR as above with no overt signs of pneumonia
#4: hypokalemia
-replete electrolytes as per hospitalist
#5: recent syncopal episode, ER w/u unrevealing
-Unclear if this is related
-CT head negative. Normotensive without tachycardia
Other medical hx:
-HTN
-dementia
-HLD
-recent patellar fracture 07/2023
-
-
Thank you for consultation and allowing me to participate in the patient's care. Please call the caption writer GI physician during the after hours with any questions or concerns.
[2023-09-29] MEDS: VITAMIN B-12 PO (09:32)
[2023-09-29] MEDS: FOLVITE PO (09:32)
[2023-09-29] MEDS: NSS 1000 IV ×2 (09:32→10:52)
[2023-09-29] MEDS: DESENEX/MITRAZOL/ZEASORB TOPICAL (09:32)
[2023-09-29] MEDS: LIPITOR PO (09:32)
[2023-09-29] MEDS: ZOLOFT PO (09:32)
[2023-09-29] MEDS: KCL 270 MEQ IV (10:51)
[2023-09-29 11:00] VITALS: BP 121/61; PULSE 68; O2SAT 93
--- NOTE | 2023-09-29 11:03 | W.PN.HOSP.TC ---
Today's Communication/Plan
-
Replete potassium
Await GI input
Assessment / Plan
Assessment / Plan
Gen-awake, not alert, no acute distress
HEENT-NC, AT, anicteric, clear oral mm
Neck-supple
CV-reg, no M, +S1/S2
Lungs-clear B/L
Abd-soft, NT, ND
Ext-no edema
Musculoskeletal-no cyanosis, clubbing
Skin-warm and dry
Neuro-grossly non-focal
Psych-calm, cooperative
Hematemesis/acute upper GI bleed -source unclear. No bleeding events overnight. No known history of GI bleed.� Not on anticoagulation or antiplatelet agent.� Hemodynamically stable.� GI consulted. Obstruction series negative. Currently NPO.
Start diet if GI does not plan on endoscopy.
Acute anemia -possibly due to acute blood loss anemia due to acute upper GI bleed. Hemoglobin down to 11.9. Monitor for now.
Hypokalemia -will replete.� Magnesium 1.8.
Recent ER visit for syncope versus seizure -September 27, 2023.� Not discharged on antiepileptic.� CT head done at the time was unremarkable.
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
Essential hypertension -stable.
Hyperlipidemia -on atorvastatin.
DNR
Anticipated Discharge: Within 24 hours
Subjective/Interval History
-
Date of Service: September 29, 2023
Patient seen and examined. States he feels fine, does not want to be bothered. No complaints.
Objective Data
-
Labs:
Laboratory Results
09/29/23
04:58
WBC 6.0
Hgb 11.9 L
Hct 35.5 L
Plt Count 190 D
Sodium 139
Potassium 3.0 L
Chloride 104
Carbon Dioxide 25
BUN 26 H
Creatinine 0.9
Glucose 92
Calcium 8.0 L
Vital Signs:
Vital Signs
Temp Pulse Resp BP Pulse Ox
97.9 F 69 14 138/68 92
09/29/23 07:00 09/29/23 07:00 09/29/23 07:00 09/29/23 07:00 09/29/23 07:00
I&O
09/28/23 09/29/23 09/30/23
06:59 06:59 06:59
Intake Total 840 / 840
Output Total 200 / 200
Balance 640 / 640
Review of Systems
-
Unable to obtain full review of systems at this time due to: Dementia
History Source: Patient
All other systems: Reviewed and negative
[2023-09-29 11:06] VITALS: BP 121/61; PULSE 68; O2SAT 92
--- NOTE | 2023-09-29 11:26 | CM ---
Reviewed the chart notes and spoke with the patient at the bedside. MATHIAS letter provided and explained. No questions with regards to the letter where voiced.
The patient resides alone in assisted living at [facility]. The patient uses a rolling walker with ambulation and has per records been to [facility] in the past. CM continues to be available to patient/family and is monitoring medical plan for
needs at discharge.
Plan: Discharge plans will depend on the patient's progress.
[2023-09-29 15:00] VITALS: BP 141/68
--- NOTE | 2023-09-29 17:10 | PTCARENOTE ---
Called [facility] ([phone]) and spoke with Juhi to verify immunization records. Patient received influenza vaccine on 04/19/23, but no record of PNA vaccine. Will get consent from sister before discharge.
[2023-09-29 17:49] VITALS: BP 140/74
[2023-09-29] MEDS: NORVASC 10 MG PO (17:49)
[2023-09-29] MEDS: DESENEX/MITRAZOL/ZEASORB 1 APPLIC TOPICAL (21:00)
[2023-09-29] MEDS: PROTONIX IV 40 MG IV (21:00)
[2023-09-29] MEDS: NSS (PRESERVATIVE FREE) 10 ML IV (21:00)
[2023-09-29] MEDS: KCL 20 MEQ PO (21:00)
[2023-09-30 00:03] VITALS: BP 142/66
[2023-09-30] MEDS: NSS 1000 IV (04:06)
[2023-09-30 07:30] VITALS: BP 155/70
[2023-09-30] MEDS: ZOLOFT 75 MG PO (07:45)
[2023-09-30] MEDS: VITAMIN B-12 1000 MCG PO (07:46)
[2023-09-30] MEDS: PROTONIX IV 40 MG IV (07:46)
[2023-09-30] MEDS: KCL 20 MEQ PO (07:46)
[2023-09-30] MEDS: NSS (PRESERVATIVE FREE) 10 ML IV (07:46)
[2023-09-30] MEDS: FOLVITE 1 MG PO (07:46)
[2023-09-30] MEDS: LIPITOR 20 MG PO (07:46)
[2023-09-30] MEDS: DESENEX/MITRAZOL/ZEASORB 1 APPLIC TOPICAL (08:08)
[2023-09-30 08:24] LABS: % Basophils 0.2 % (0-2); % Eosinophils 1.6 % (0-6); % Immature Granulocytes 0.4 % (0-0.5); % Lymphocytes 19.6 % (20.5-51.1); % Monocytes 10.1 % (1.7-9.3); % Neutrophils 68.1 % (42.2-75.2); Absolute Eosinophils 0.1 10^3/uL (0-0.7); Absolute Monocytes 0.5 10^3/uL (0.1-0.6); Absolute Neutrophils 3.4 10^3/uL (1.4-6.5); Hematocrit 34.5 % (39.0-52.0); Hemoglobin 11.7 g/dL (13.0-18.0); Mean Corp Hgb Conc. 33.9 g/dL (33.0-37.0); Mean Corpuscular Hgb 30.5 pg (27.0-31.0); Mean Corpuscular Volume 90.1 fL (80.0-94.0); Mean Platelet Volume 9.2 fL (7.4-10.4); Nucleated Red Blood Cells % 0 % (-); Platelet Count 159 10^3/uL (130-400); Red Blood Cell Count 3.83 10^6/uL (4.70-6.10); White Blood Cell Count 4.9 10^3/uL (4.8-10.8)
[2023-09-30 09:03] LABS: Blood Urea Nitrogen 16 mg/dl (9-20); Calcium 7.9 mg/dl (8.4-10.2); Carbon Dioxide 24 mmol/L (22-30); Chloride 106 mmol/L (98-107); Estimated Creatinine Clearance 98 ml/min; Glucose 89 mg/dl (70-99); Potassium 3.7 mmol/L (3.5-5.1); Sodium 137 mmol/L (135-145); eGFR > 60.00
--- NOTE | 2023-09-30 10:08 | CM ---
Reviewed the chart notes. Patient for discharge back to [facility] today. Patient's sister informed of plan and is in agreement with discharge plan.
Call report to: [phone]
Fax report to: [phone]
Medical necessity and transport form on chart.
--- NOTE | 2023-09-30 10:10 | W.PN.HOSP.TC ---
Today's Communication/Plan
-
Discharge
Assessment / Plan
Assessment / Plan
Gen-awake, not alert, no acute distress
HEENT-NC, AT, anicteric, clear oral mm
Neck-supple
CV-reg, no M, +S1/S2
Lungs-clear B/L
Abd-soft, NT, ND
Ext-no edema
Musculoskeletal-no cyanosis, clubbing
Skin-warm and dry
Neuro-grossly non-focal
Psych-calm, cooperative
Hematemesis/acute upper GI bleed -source unclear. No bleeding events overnight. No known history of GI bleed.� Not on anticoagulation or antiplatelet agent.� Hemodynamically stable.� GI consulted. Obstruction series negative. Tolerating diet.
Acute anemia -possibly due to acute blood loss anemia due to acute upper GI bleed. Hemoglobin down to 11.9. Monitor for now.
Hypokalemia -improved.
Recent ER visit for syncope versus seizure -September 27, 2023.� Not discharged on antiepileptic.� CT head done at the time was unremarkable.
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
Essential hypertension -stable.
Hyperlipidemia -on atorvastatin.
DNR
Dispo -medically stable for discharge back to assisted living. Outpatient follow-up. Case management aware.
32 min spent in discharge process.
Anticipated Discharge: Today
Subjective/Interval History
-
Date of Service: September 30, 2023
Patient seen and examined. No complaints. Ate breakfast.
Objective Data
-
Labs:
Laboratory Results
09/30/23
07:55
WBC 4.9
Hgb 11.7 L
Hct 34.5 L
Plt Count 159
Sodium 137
Potassium 3.7
Chloride 106
Carbon Dioxide 24
BUN 16
Creatinine 0.7
Glucose 89
Calcium 7.9 L
Vital Signs:
Vital Signs
Temp Pulse Resp BP Pulse Ox
98.2 F 58 16 155/70 96
09/30/23 07:30 09/30/23 07:30 09/30/23 07:30 09/30/23 07:30 09/30/23 07:30
I&O
09/29/23 09/30/23 10/01/23
06:59 06:59 06:59
Intake Total 840 / 840 2520 / 2520
Output Total 200 / 200 780 / 780
Balance 640 / 640 1740 / 1740
Review of Systems
-
Unable to obtain full review of systems at this time due to: Dementia
History Source: Patient
All other systems: Reviewed and negative
--- NOTE | 2023-09-30 10:22 | W.DS.TRANS ---
DC Summary - [facility]
-
Discharge Instructions:
Discharge Diagnosis/Procedures Hematemesis, anemia, hypokalemia
Diet Low Residue
Activity With assistance
Driving Restrictions No driving
Bathing Restrictions None
Blood Work BMP, CBC in 1 week
Instructions:
Stand-Alone Forms:
Changes to Home Medications: No
Discharge Medications:
DC Medications w/original date entered in [facility]
acetaminophen 325 mg tablet (Tylenol) 650 mg PO Q6H PRN mild pain 02/17/23
amlodipine 10 mg tablet (Norvasc) 10 mg PO QPM Blood Pressure 02/17/23
atorvastatin 20 mg tablet (Lipitor) 20 mg PO DAILY High Cholesterol 02/17/23
folic acid 1 mg tablet 1 mg PO DAILY Supplement 02/17/23
furosemide 20 mg tablet 20 mg PO DAILY Fluid Retention/Swelling 02/17/23
lisinopril 20 mg-hydrochlorothiazide 25 mg tablet 1 tab PO DAILY Blood Pressure 02/17/23
sertraline 50 mg tablet 75 mg PO DAILY Mental Health/Anxiety 02/17/23
calcium carbonate 600 mg calcium (1,500 mg) tablet (Calcium) 600 mg PO DAILY Supplement 07/27/23
carboxymethylcellulose sodium 0.5 % eye drops (Refresh Tears) 1 drp BOTH EYES DAILY PRN dry eyes 07/27/23
cyanocobalamin (vitamin B-12) 1,000 mcg tablet (Vitamin B-12) 1,000 mcg PO DAILY Supplement 07/27/23
multivitamin (Daily-Alysa tablet) 1 tab PO DAILY Supplement 07/27/23
pantoprazole 40 mg tablet,delayed release (Protonix) 40 mg PO DAILY #30 tabs 09/29/23
potassium chloride 20 mEq tablet,extended release 20 meq PO BID #10 tabs 09/29/23
Home Medication Changes
Pending Results: No
--- NOTE | 2023-09-30 11:20 | PTCARENOTE ---
Report called to Hemant at [facility]. Ambulance scheduled for car pick up driver at 14:30.
== END 2023-09-30 16:41 | disposition home or self-care (01) ==
LOC: 2 NORTH 18:43
PROVIDERS: Clinical Nurse Specialist Family Health; ADMITTING PHYSICIAN Hospitalist; CONSULT PHYSICIAN Internal Medicine; EMERGENCY PHYSICIAN Emergency Medicine; FAMILY PHYSICIAN Internal Medicine
DX: K92.0 Hematemesis (principal); D62 Acute posthemorrhagic anemia; E87.6 Hypokalemia; G30.9 Alzheimer's disease, unspecified; F02.80 Dementia in other diseases classified elsewhere, unspecified severity, without behavioral disturbance, psychotic disturbance, mood disturbance, and anxiety; I10 Essential (primary) hypertension; E78.00 Pure hypercholesterolemia, unspecified; R09.02 Hypoxemia; Z66 Do not resuscitate
CPT/HCPCS: 71046; 74018; 80048; 80053; 83690; 83735; 85025; 85027; 85610; 85730; 86850; 86900; 86901; 87070; 93005; 96374; 97163; 97166; 97530; 99285; G0378

== ENCOUNTER 2023-10-10 07:32 | Emergency (ER) | payer OTHER, SELFPAY ==
[2023-10-10] VITALS (9 sets, daily range): BP systolic 130–156; BP diastolic 65–113
--- NOTE | 2023-10-10 07:44 | ED.GENMED ---
History of Present Illness
General
Chief Complaint: Seizure
Exam Limitations: none
Time Seen by Provider: 10/10/23 07:38
Nursing documentation reviewed up to this point in time: agreed with
Travel History
Have you had any contact with someone who has COVID-19?: Unable to Answer
Do you have any symptoms of coronavirus? Fever > 100 degrees, chills, cough, shortness of breath, sore throat, loss of taste or smell, muscle aches, or headache?: Unable to Answer
History of Present Illness
History of Present Illness:
Patient is 82 old male past medical history of GI bleed anemia hypokalemia Alzheimer's from memory care unit sent to the ER for seizure activity lasted for approximately 2 minutes. Patient arrives awake alert he has a history dementia and is
pleasantly confused unable to give history.
Nurse reports pt is in memory care at [place], normally walks/uses wheel chair. She reports pt was sitting in common room started to have seizure activity , foaming in the mouth. Nurse reports it occurred on [facility] (0650 am) unsure length of
episode. Nurse reports the patient was also seen here in this ER several weeks ago. It is documented the patient was seen here September 27 for possible seizure activity
Past History
Past History
ED Past Medical History: HTN and Other (Possible seizure September 2023)
Social History
Drug: None
Living: assisted living
Phy Exam
General Physical Exam
General Presentation: no apparent distress
General age: appears stated age
General Skin: warm and dry
General Habitus: elderly
General Mental: alert and confused
General Hydration: appears well hydrated
Cardiovascular Exam
Cardiovascular Exam: regular rate/rhythm
Pulmonary Exam
Pulmonary Exam: lungs clear and no respiratory distress
Neurological Exam
Neurological Exam: alert and oriented x3
Cong Coma Scale
Eye Opening: Spontaneous
Verbal Response: Oriented
Motor Response: Obeys Commands
GCS Total Score: 15
Musculoskeletal Exam
Musculoskeletal Exam: full ROM
Skin Exam
Skin Exam: normal color and warm/dry
Psychiatric Exam
Psychiatric Exam: normal mood/affect and other (plesantly confused cooperative)
Course
Orders/Labs/Results
Orders:
Orders
10/10/23 07:41
Electrocardiogram (*1) Urgent
Reason for Study: Other
Other Reason for Exam: seizure
EKG- Treatment ONCE
10/10/23 07:54
CT Head W/o Iv Contrast Urgent
Comment:
Reason For Exam: seizure
EKG- Treatment ONCE
IV Insert/Care/Rem.- Treatment PRN
10/10/23 08:01
Complete Blood Count/With Diff Urgent
Comprehensive Metabolic Panel Urgent
10/10/23 09:48
Lidocaine 2% [Lidocaine Uro-Jet 2%] 1 syringe .ROUTE .[facility]
10/10/23 10:02
UA Reflex to Culture [Urinalysis Reflex To Culture] Urgent
Date Specimen was Collected: 10/10/23
Time Specimen was Collected: 10:01
Urine Microscopic Reflex Cult Urgent
Urine Culture Urgent
TANO Source: U
Specimen Description:
Date Specimen was Collected: 10/10/23
Time Specimen was Collected: 10:01
Levetiracetam [Keppra] 500 mg PO NOW STA
10/10/23 12:41
CefTRIAXone [Rocephin] 1,000 mg IV NOW STA
Abnormal Lab Results
10/10/23 10/10/23
08:01 10:02
WBC 11.3 H 10^3/uL
(4.8-10.8)
RBC 3.87 L 10^6/uL
(4.70-6.10)
Hgb 11.8 L g/dL
(13.0-18.0)
Hct 34.1 L %
(39.0-52.0)
Abs Immat Gran (auto) 0.1 H 10^3/uL
(0-0.05)
Absolute Neuts (auto) 9.0 H 10^3/uL
(1.4-6.5)
Absolute Monos (auto) 0.8 H 10^3/uL
(0.1-0.6)
Immature Gran % 0.6 H %
(0-0.5)
Neutrophils % 79.5 H %
(42.2-75.2)
Lymphocytes % 11.2 L %
(20.5-51.1)
Carbon Dioxide 31 H mmol/L
(22-30)
Glucose 116 H mg/dl
(70-99)
Total Protein 6.0 L g/dl
(6.3-8.2)
Albumin 3.3 L g/dl
(3.5-5.0)
Leukocyte Esterase Rfl 2+ A
(Negative)
Urine WBC (Reflex) 40-50 A /HPF
(0-5)
Urine Bacteria (Reflex) Moderate A
(Negative)
10/10/23 08:01
10/10/23 08:01
Vital Signs
Initial and Last Documented VS:
Initial Vital Signs
Pulse Resp BP
51 15 133/70
10/10/23 07:39 10/10/23 07:39 10/10/23 07:39
Last Documented Vital Signs
Temp Pulse Resp BP Pulse Ox
97.9 F 64 15 153/85 95
10/10/23 07:42 10/10/23 12:30 10/10/23 12:30 10/10/23 12:00 10/10/23 09:45
MDM/Problems Addressed
Differential Diagnosis Includes:
Not limited to seizure, electro abnormality, UTI, infection
MDM/Problems Addressed:
Patient is a 82-year-old male with dementia from memory care unit sent for seizure activity. I did speak with the nurse from nursing facility but she reports episode occurred at [facility]. It was reported to the nurse here in the ER that seizure
episode lasted for approximately 2 minutes. Patient was seen here September 27 for questionable seizure activity had an unremarkable workup and was sent back to nursing care facility. Patient is awake alert he is in no acute distress. He has no
urinary incontinence no oral mouth laceration or abrasions. He is afebrile. He is awake alert pleasantly confused no injury moves all extremities. Patient's white count minimally elevated 11.3, unremarkable chemistries . CAT scan shows a stable
8 mm lacunar infarct in the left thalamus .no acute intracranial abnormalities.
1309: Patient stable awake alert no acute distress no seizure activity noted here in the ER. You was found to be infected 40�50 white blood cells. As discussed white count minimally .3.
Case reviewed with neurology, Dr Velez who recommends discharging on Keppra 500 mg twice a day. With UTI will also DC on Keflex. Patient was given first dose of Keppra here as well as Keflex. I spoke with Sister Ree and made her aware of
plan for starting seizure meds and antibiotic for UTI. will d/c back to [place]. scripts sent to pharmacy
*Radiology
Radiology exam reviewed: radiology read reviewed (Stable lacunar infarct in the left thalamus)
*Pulse Oximetry
Patient hypoxic: no
*EKG
Interpreted by ED Provider?: Yes
Heart Rate: 52
Rate: normal
Rhythm: sinus
Ischemia: no ischemia
*Centrifugal Machine Tender Interpretation
Rate: bradycardiac
*Critical Care Note
Total Time (30-74mins, 75-104mins- exclusive of procedures): Not Applicable
Patient Management
Discussion with other providers: Food And Nutrition Professor (neuro DR Velez )
ED Attending Note
-
Portions of this chart may have been created with voice recognition software.� Occasional wrong word or��sound alike� substitutions may have occurred due to the inherent limitations of voice recognition software.
Discharge Plan
Departure
Patient Disposition: Detention/SNF
Date of Disposition: 10/10/23
Time of Disposition: 13:29
Patient with high blood pressure during this ER visit?: Yes
Condition: Fair
Covid-19: Not Applicable
Discharge Problem:
Seizure, Acute UTI
Instructions: Urinary Tract Infection, Adult (DC), Seizures, Adult (DC), BLOOD PRESSURE
Prescriptions:
New
cephalexin 500 mg capsule
500 mg PO Q6H Qty: 28 0RF
levetiracetam [Keppra] 500 mg tablet
500 mg PO BID Qty: 60 0RF
No Action
acetaminophen [Tylenol] 325 mg Tablet
650 mg PO Q8HPRN PRN (Reason: mild pain)
atorvastatin [Lipitor] 20 mg Tablet
20 mg PO DAILY@0900
amlodipine [Norvasc] 10 mg Tablet
10 mg PO DAILY@1999
folic acid 1 mg Tablet
1 mg PO DAILY
sertraline 50 mg Tablet
75 mg PO DAILY@0900
lisinopril-hydrochlorothiazide 20-25 mg Tablet
1 tab PO DAILY@0900
furosemide 20 mg Tablet
20 mg PO MOWEFR
Patient Comments:
10/10/2023, between 8AM-10AM.
multivitamin [Daily-Alysa] Tablet
1 tab PO DAILY
Rx Instructions:
10/10/2023, 400 mcg.
cyanocobalamin (vitamin B-12) [Vitamin B-12] 1,000 mcg Tablet
1,000 mcg PO DAILY
calcium carbonate [Calcium 600] 600 mg calcium (1,500 mg) Tablet
600 mg PO DAILY
carboxymethylcellulose sodium [Refresh Tears] 0.5 % Drops
1 drp BOTH EYES DAILY PRN (Reason: dry eyes)
Referrals:
Anna Elias, [Family Provider] -
El Velez MD [Active] -
Activity Restrictions/Additional Instructions:
Patient was started on Keppra for seizures as discussed with neurology. Patient to take 500 mg twice daily. Patient will need to be followed by neurology within the next week.
Patient also has a urinary tract infection and was started on Keflex. Patient was given a dose of IV Rocephin. Prescriptions for Keppra as well as Keflex were sent to patient's pharmacy.
Patient should follow-up with neurology in the next several days as well as family doctor.
Return if any worsening of symptoms.
Interventions
Interventions:
*Risk Screen - Suicide Last Done: 10/10/23 07:44
*Neglect/Abuse Screening Last Done: 10/10/23 07:44
ED- Fall Risk Assessment Last Done: 10/10/23 09:21
*ED COVID-19 Vaccine History Last Done: 10/10/23 07:45
ED- Cardiac Assessment Last Done: 10/10/23 07:46
ED- Neurological Assessment Last Done: 10/10/23 07:46
ED- Pulmonary Assessment Last Done: 10/10/23 07:47
[2023-10-10 08:13] LABS: % Basophils 0.3 % (0-2); % Eosinophils 1.4 % (0-6); % Immature Granulocytes 0.6 % (0-0.5); % Lymphocytes 11.2 % (20.5-51.1); % Neutrophils 79.5 % (42.2-75.2); Absolute Eosinophils 0.2 10^3/uL (0-0.7); Absolute Immature Granulocytes 0.1 10^3/uL (0-0.05); Absolute Lymphocytes 1.3 10^3/uL (1.2-3.4); Absolute Monocytes 0.8 10^3/uL (0.1-0.6); Hematocrit 34.1 % (39.0-52.0); Hemoglobin 11.8 g/dL (13.0-18.0); Mean Corp Hgb Conc. 34.6 g/dL (33.0-37.0); Mean Corpuscular Hgb 30.5 pg (27.0-31.0); Mean Corpuscular Volume 88.1 fL (80.0-94.0); Mean Platelet Volume 8.9 fL (7.4-10.4); Nucleated Red Blood Cells % 0 % (-); Platelet Count 182 10^3/uL (130-400); Red Blood Cell Count 3.87 10^6/uL (4.70-6.10); Red Cell Dist. Width 13.2 % (11.5-14.5); White Blood Cell Count 11.3 10^3/uL (4.8-10.8)
[2023-10-10 08:26] LABS: ALT (SGPT) 21 U/L (0-50); AST (SGOT) 27 U/L (17-59); Albumin 3.3 g/dl (3.5-5.0); Alkaline Phosphatase 70 U/L (38-126); Blood Urea Nitrogen 18 mg/dl (9-20); Calcium 8.5 mg/dl (8.4-10.2); Carbon Dioxide 31 mmol/L (22-30); Chloride 104 mmol/L (98-107); Glucose 116 mg/dl (70-99); Potassium 3.5 mmol/L (3.5-5.1); Sodium 137 mmol/L (135-145); Total Bilirubin 1.2 mg/dl (0.2-1.3); eGFR > 60.00
[2023-10-10] MEDS: KEPPRA 500 MG PO (10:11)
[2023-10-10 10:19] LABS: Urine Albumin Negative (Neg - Trace); Urine Bilirubin Negative (Negative); Urine Character Slightly Cloudy (Clear); Urine Color Yellow; Urine Glucose Negative (Negative); Urine Ketone Negative (Negative); Urine Leukocyte 2+ (Negative); Urine Nitrite Negative (Negative); Urine Occult Blood Negative (Negative); Urine Specific Gravity 1.005 (<1.030); Urine Urobilinogen Negative (Neg - 1+)
[2023-10-10 10:58] LABS: Urine Bacteria Moderate (Negative); Urine Red Blood Cell 0-2 /HPF (0-2); Urine White Cell 40-50 /HPF (0-5)
[2023-10-10] MEDS: ROCEPHIN 1000 MG IV (12:52)
== END 2023-10-10 17:24 ==
LOC: EMR 07:32
PROVIDERS: Nurse Practitioner; EMERGENCY PHYSICIAN Emergency Medicine; FAMILY PHYSICIAN Hospitalist
DX: R56.9 Unspecified convulsions (principal); N39.0 Urinary tract infection, site not specified; I10 Essential (primary) hypertension; G30.9 Alzheimer's disease, unspecified
CPT/HCPCS: 99284; 96374; 70450; 80053; 81003; 81015; 85025; 87077; 87086; 93005

== ENCOUNTER → 2023-10-31 09:30 | Outpatient (REF) | payer MEDICARE, SELFPAY ==
[2023-10-31 13:16] LABS: Urine Albumin Negative (Neg - Trace); Urine Bilirubin Negative (Negative); Urine Character Clear (Clear); Urine Color Yellow; Urine Glucose Negative (Negative); Urine Ketone Negative (Negative); Urine Leukocyte Negative (Negative); Urine Nitrite Negative (Negative); Urine Occult Blood Negative (Negative); Urine Specific Gravity 1.015 (<1.030); Urine Urobilinogen 1+ (Neg - 1+); Urine pH 6.5 (5.0-9.0)
== END ==
LOC: OLABSOL 09:30
PROVIDERS: ATTENDING PHYSICIAN Hospitalist
DX: N39.0 Urinary tract infection, site not specified (principal)
CPT/HCPCS: 81003; 87086

== ENCOUNTER → 2023-11-09 12:23 | Outpatient (REF) | payer MEDICARE, SELFPAY ==
[2023-11-09 13:01] LABS: Urine Albumin Negative (Neg - Trace); Urine Bilirubin Negative (Negative); Urine Character Clear (Clear); Urine Color Yellow; Urine Glucose Negative (Negative); Urine Ketone Negative (Negative); Urine Leukocyte Negative (Negative); Urine Nitrite Negative (Negative); Urine Occult Blood Negative (Negative); Urine Specific Gravity 1.015 (<1.030); Urine Urobilinogen Negative (Neg - 1+)
== END ==
LOC: OLABSOL 12:23
PROVIDERS: ATTENDING PHYSICIAN Hospitalist
DX: N39.0 Urinary tract infection, site not specified (principal)
CPT/HCPCS: 81003; 87086

== ENCOUNTER → 2023-11-10 13:02 | Outpatient (REF) | payer MEDICARE, SELFPAY ==
[2023-11-10 13:42] LABS: % Basophils 0.5 % (0-2); % Eosinophils 3.9 % (0-6); % Immature Granulocytes 0.2 % (0-0.5); % Lymphocytes 21.7 % (20.5-51.1); % Monocytes 8.3 % (1.7-9.3); % Neutrophils 65.4 % (42.2-75.2); Absolute Eosinophils 0.2 10^3/uL (0-0.7); Absolute Lymphocytes 1.2 10^3/uL (1.2-3.4); Absolute Monocytes 0.5 10^3/uL (0.1-0.6); Absolute Neutrophils 3.7 10^3/uL (1.4-6.5); Hematocrit 35.7 % (39.0-52.0); Hemoglobin 12.2 g/dL (13.0-18.0); Mean Corp Hgb Conc. 34.2 g/dL (33.0-37.0); Mean Corpuscular Hgb 30.7 pg (27.0-31.0); Mean Corpuscular Volume 89.9 fL (80.0-94.0); Mean Platelet Volume 9.7 fL (7.4-10.4); Nucleated Red Blood Cells % 0 % (-); Platelet Count 166 10^3/uL (130-400); Red Blood Cell Count 3.97 10^6/uL (4.70-6.10); Red Cell Dist. Width 13.2 % (11.5-14.5); White Blood Cell Count 5.7 10^3/uL (4.8-10.8)
[2023-11-10 14:05] LABS: Blood Urea Nitrogen 18 mg/dl (9-20); Carbon Dioxide 28 mmol/L (22-30); Chloride 104 mmol/L (98-107); Glucose 112 mg/dl (70-99); Potassium 3.4 mmol/L (3.5-5.1); Sodium 138 mmol/L (135-145); eGFR > 60.00
[2023-11-12 23:15] LABS: Keppra (Levetiracetam) 23 ug/mL (10-40)
== END ==
LOC: OLABSOL 13:02
PROVIDERS: ATTENDING PHYSICIAN Nurse Practitioner Gerontology
DX: R94.4 Abnormal results of kidney function studies (principal); D64.9 Anemia, unspecified; G40.89 Other seizures
CPT/HCPCS: 36415; 80048; 80177; 85025

== ENCOUNTER → 2023-12-08 12:02 | Outpatient (REF) | payer MEDICARE, SELFPAY ==
[2023-12-08 13:04] LABS: Blood Urea Nitrogen 20 mg/dl (9-20); Carbon Dioxide 28 mmol/L (22-30); Chloride 104 mmol/L (98-107); Glucose 96 mg/dl (70-99); Potassium 3.3 mmol/L (3.5-5.1); eGFR > 60.00
[2023-12-08 13:12] LABS: Sodium 139 mmol/L (135-145)
== END ==
LOC: OLABSOL 12:02
PROVIDERS: ATTENDING PHYSICIAN Nurse Practitioner Gerontology
DX: R94.4 Abnormal results of kidney function studies (principal)
CPT/HCPCS: 36415; 80048

== ENCOUNTER 2024-02-14 12:20 | Inpatient (IN) | payer OTHER, SELFPAY ==
[2024-02-14] VITALS (9 sets, daily range): BP systolic 106–173; BP diastolic 62–94
[2024-02-14 10:28] LABS: Glucose - Point of Care 136 mg/dl (70-99)
--- NOTE | 2024-02-14 10:35 | ED.GENMED ---
History of Present Illness
<Bob Hamilton DO - Last Filed: 02/14/24 10:37>
General
Chief Complaint: Change in Mental Status
Time Seen by Provider: 02/14/24 10:23
<Bc He PA-C - Last Filed: 02/14/24 14:04>
General
Source: records and ambulance crew
History of Present Illness
History of Present Illness:
83-year-old male with past medical history of dementia and seizure disorder, hypertension, hyperlipidemia presenting to the emergency department for evaluation with EMS after he was found to be reportedly diaphoretic and decreased level of alertness
at his memory care unit earlier this morning around 8:30 AM. EMS was notified and found the patient to be hypotensive and bradycardic at the facility. Patient was treated with 1 mg of atropine and approximately 200 mL of saline on his way to the
hospital. Patient still noted to be bradycardic with a rate between 50 and 62 bpm. There were no reported fevers or any recent illnesses by the facility or staff. Patient is without any specific complaints or concerns at this time.
Past History
<Bc He PA-C - Last Filed: 02/14/24 14:04>
Past History
ED Past Medical History: HTN, Hypercholesterolemia and Other (Dementia, seizure disorder)
ED Past Surgical History: None
Social History
Tobacco: Non-smoker
Alcohol: None
Drug: None
Personal: Single
Living: assisted living
Review of Systems
<Bc He PA-C - Last Filed: 02/14/24 14:04>
Review of Systems
All Other Systems: ROS reviewed and negative except as documented in HPI and ROS
Phy Exam
<KOLBY Pulido Last Filed: 02/14/24 14:04>
Physical Exam
Physical Exam:
GENERAL: Somnolent but does arouse to voice, will answer most questions with 2-3 word sentences and follows commands appropriately
Head: Normocephalic atraumatic
EYE: pupils equal and reactive, 3 mm bilateral
NECK: Supple
ENT: o/p clr, mmm.
CARDIAC: Bradycardic rate and rhythm.
LUNGS: Clear breath sounds bilaterally, no acute respiratory distress, no wheezes/rales/rhonchi
ABDOMEN: Soft, without focal tenderness, no r/g, no cvat
NEUROLOGICAL: Oriented to place and self but not time, moves all extremities, no facial drooping, no ataxia
SKIN: Warm and dry, skin intact.
MUSCULOSKELETAL: No edema, well perfused.
PSYCH: Normal and appropriate interaction.
Scores
<Bc He PA-C - Last Filed: 02/14/24 14:04>
Heart Failure Risk
Heart Failure Risk Score: Not Applicable
Heart Score for Chest Pain Patients
STEMI patient?: Not applicable
Withdrawal Assessment of Alcohol
Withdrawal Assessment Completed?: Not applicable
Course
<Bob Hamilton DO - Last Filed: 02/14/24 10:37>
Orders/Labs/Results
Orders:
Orders
02/14/24 10:17
Electrocardiogram (*1) Urgent
Reason for Study: Bradycardia / Tachycardia
02/14/24 10:18
EKG- Treatment ONCE
02/14/24 10:[address] [CT Head W/o Iv Contrast] Urgent
Comment:
Reason For Exam: change in MS
02/14/24 10:33
Urinalysis Reflex To Culture Urgent
02/14/24 10:49
Complete Blood Count/With Diff Urgent
Comprehensive Metabolic Panel Urgent
Creatine Phosphokinase Urgent
Magnesium Urgent
Troponin I Urgent
02/14/24 10:54
COVID-19 Antigen Urgent
Source: Nasal Swab
Lactic Acid Q4H
Comment: CANCEL 2nd LACTIC ACID IF 1st LACTIC ACID IS LESS THAN 2
02/14/24 11:00
CR Chest Portable - 1 View Urgent
Comment:
Reason For Exam: change in mental status
Reason Study Needs to be Portable: Unable to Transport
02/14/24 12:02
Admit/Transfer Patient As Directed
Co-Sign Provider:
Level of Care: Inpatient admission
Assign to:: Telemetry
Physician / Group: Hospitalist
Diagnosis: Syncope
Reason for Telemetry: Arrhythmia
Date to Stop Telemetry: 02/17/24
Time to Stop Telemetry: 11:00
Reason for Hospitalization: .
Expected length of stay greater than two midnights?: Yes
ELOS- Estimated Length of Stay in days: 3
I certify the patient meets the requirements for IP care: Yes
02/17/24 11:00
DC Protocol for Telemetry ONCE
Abnormal Lab Results
02/14/24 02/14/24
10:26 10:49
WBC 4.5 L 10^3/uL
(4.8-10.8)
RBC 3.78 L 10^6/uL
(4.70-6.10)
Hgb 11.4 L g/dL
(13.0-18.0)
Hct 33.7 L %
(39.0-52.0)
Absolute Lymphs (auto) 1.1 L 10^3/uL
(1.2-3.4)
BUN 26 H mg/dl
(9-20)
Glucose 129 H mg/dl
(70-99)
Total Bilirubin 1.8 H mg/dl
(0.2-1.3)
Total Protein 6.0 L g/dl
(6.3-8.2)
POC Glucose 136 H mg/dl
(70-99)
02/14/24 10:49
02/14/24 10:49
Vital Signs
Initial and Last Documented VS:
Initial Vital Signs
BP
116/62
02/14/24 10:17
Last Documented Vital Signs
Temp Pulse Resp BP Pulse Ox
97.5 F 65 18 134/71 91
02/14/24 10:25 02/14/24 13:02 02/14/24 13:02 02/14/24 13:02 02/14/24 13:02
<Bc He PA-C - Last Filed: 02/14/24 14:04>
Orders/Labs/Results
Orders:
Orders
02/14/24 10:17
Electrocardiogram (*1) Urgent
Reason for Study: Bradycardia / Tachycardia
02/14/24 10:18
EKG- Treatment ONCE
02/14/24 10:[address] [CT Head W/o Iv Contrast] Urgent
Comment:
Reason For Exam: change in MS
02/14/24 10:33
Urinalysis Reflex To Culture Urgent
02/14/24 10:49
Complete Blood Count/With Diff Urgent
Comprehensive Metabolic Panel Urgent
Creatine Phosphokinase Urgent
Magnesium Urgent
Troponin I Urgent
02/14/24 10:54
COVID-19 Antigen Urgent
Source: Nasal Swab
Lactic Acid Q4H
Comment: CANCEL 2nd LACTIC ACID IF 1st LACTIC ACID IS LESS THAN 2
02/14/24 11:00
CR Chest Portable - 1 View Urgent
Comment:
Reason For Exam: change in mental status
Reason Study Needs to be Portable: Unable to Transport
02/14/24 12:02
Admit/Transfer Patient As Directed
Co-Sign Provider:
Level of Care: Inpatient admission
Assign to:: Telemetry
Physician / Group: Hospitalist
Diagnosis: Syncope
Reason for Telemetry: Arrhythmia
Date to Stop Telemetry: 02/17/24
Time to Stop Telemetry: 11:00
Reason for Hospitalization: .
Expected length of stay greater than two midnights?: Yes
ELOS- Estimated Length of Stay in days: 3
I certify the patient meets the requirements for IP care: Yes
02/17/24 11:00
DC Protocol for Telemetry ONCE
Abnormal Lab Results
02/14/24 02/14/24
10:26 10:49
WBC 4.5 L 10^3/uL
(4.8-10.8)
RBC 3.78 L 10^6/uL
(4.70-6.10)
Hgb 11.4 L g/dL
(13.0-18.0)
Hct 33.7 L %
(39.0-52.0)
Absolute Lymphs (auto) 1.1 L 10^3/uL
(1.2-3.4)
BUN 26 H mg/dl
(9-20)
Glucose 129 H mg/dl
(70-99)
Total Bilirubin 1.8 H mg/dl
(0.2-1.3)
Total Protein 6.0 L g/dl
(6.3-8.2)
POC Glucose 136 H mg/dl
(70-99)
02/14/24 10:49
02/14/24 10:49
Vital Signs
Initial and Last Documented VS:
Initial Vital Signs
BP
116/62
02/14/24 10:17
Last Documented Vital Signs
Temp Pulse Resp BP Pulse Ox
97.5 F 65 18 134/71 91
02/14/24 10:25 02/14/24 13:02 02/14/24 13:02 02/14/24 13:02 02/14/24 13:02
Paving Block Cutter consulted with Physician
Paving Block Cutter consulted with physician?: Yes
Name of Physician Consulted: Iman
<Bc He PA-C - Last Filed: 02/14/24 14:04>
MDM/Problems Addressed
Differential Diagnosis Includes:
Possible seizure, intracranial bleeding, infectious etiology such as UTI or pneumonia
MDM/Problems Addressed:
83-year-old male presenting to the emergency department for evaluation of reported change in mental status at facility earlier this morning. EMS noted some bradycardia and mild hypotension. Atropine and approximately 200 mL of normal saline
provided. Patient does appear somnolent here however is responsive when prompted and will answer most questions appropriately. I do not appreciate any focal neurologic deficits. Will initiate infectious workup and will also obtain a CT of the
head due to reported change in mental status combined with his reported bradycardia and hypotension. Anticipate admission. Disposition pending
Chronic conditions affecting care: Neurological disorder
Acute Exacerbation and/or Progression of Chronic Illness: Neurological disorder
<Bc He PA-C - Last Filed: 02/14/24 14:04>
*Radiology
Radiology exam reviewed: radiology read reviewed
*Pulse Oximetry
Patient hypoxic: no
*EKG
Interpreted by ED Provider?: Yes
Comparison EKG: no changes
Heart Rate: 57
Rate: bradycardiac
Rhythm: sinus
[place]: normal axis
Ischemia: no ischemia
*Bit Sharpener Operator Interpretation
Rate: bradycardiac
Rhythm: sinus
*Critical Care Note
Total Time (30-74mins, 75-104mins- exclusive of procedures): Not Applicable
Data Reviewed
Review of Other/Old Records Reveals: Labs and Records
Source: records and ambulance crew
<KOLBY Pulido Last Filed: 02/14/24 14:04>
Patient Management
Discussion with other providers: Hospitalist
Escalation/DeEscalation of care consider admission/obs:
Due to patients age, chronic medical conditions and reported mental status change and treatments pre hospital, decision made to admit for further monitoring and testing. Hospitalist team aware and accepts for continued eval and treatment. Patient
has remained hemodynamically stable
ED Attending Note
<Bob Hamilton DO - Last Filed: 02/14/24 10:37>
ED Attending Note
Patient seen and examined by attending physician: Yes
I performed the substantive portion of visit, reviewed & personally made and approve the management plan that is documented in note by myself or TJ.: Yes
<Bc He PA-C - Last Filed: 02/14/24 14:04>
-
Portions of this chart may have been created with voice recognition software.� Occasional wrong word or��sound alike� substitutions may have occurred due to the inherent limitations of voice recognition software.
Discharge Plan
Departure
Patient Disposition: Admit
Date of Disposition: 02/14/24
Time of Disposition: 11:50
Presentation/result/management discussed w/ accepting MD/DO: Hospitalist
Discharge Problem:
Altered mental status
Interventions
Interventions:
*Risk Screen - Suicide Last Done: 02/14/24 10:27
*Neglect/Abuse Screening Last Done: 02/14/24 10:27
ED- Fall Risk Assessment Last Done: 02/14/24 11:01
ED- Pulmonary Assessment Last Done: 02/14/24 11:00
ED- Neurological Assessment Last Done: 02/14/24 10:31
ED- Cardiac Assessment Last Done: 02/14/24 10:32
[2024-02-14 11:14] LABS: % Basophils 0.2 % (0-2); % Eosinophils 0.7 % (0-6); % Immature Granulocytes 0.2 % (0-0.5); % Lymphocytes 24.7 % (20.5-51.1); % Monocytes 7.3 % (1.7-9.3); % Neutrophils 66.9 % (42.2-75.2); Absolute Lymphocytes 1.1 10^3/uL (1.2-3.4); Absolute Monocytes 0.3 10^3/uL (0.1-0.6); Hematocrit 33.7 % (39.0-52.0); Hemoglobin 11.4 g/dL (13.0-18.0); Mean Corp Hgb Conc. 33.8 g/dL (33.0-37.0); Mean Corpuscular Hgb 30.2 pg (27.0-31.0); Mean Corpuscular Volume 89.2 fL (80.0-94.0); Nucleated Red Blood Cells % 0 % (-); Platelet Count 132 10^3/uL (130-400); Red Blood Cell Count 3.78 10^6/uL (4.70-6.10); Red Cell Dist. Width 12.9 % (11.5-14.5); White Blood Cell Count 4.5 10^3/uL (4.8-10.8)
[2024-02-14 11:28] LABS: Lactic Acid 0.9 mmol/L (0.7-2.0)
[2024-02-14 11:29] LABS: COVID-19 Antigen Negative (Negative)
[2024-02-14 11:29] LABS: ALT (SGPT) 16 U/L (0-50); AST (SGOT) 25 U/L (17-59); Albumin 3.6 g/dl (3.5-5.0); Alkaline Phosphatase 49 U/L (38-126); Blood Urea Nitrogen 26 mg/dl (9-20); Calcium 8.6 mg/dl (8.4-10.2); Carbon Dioxide 28 mmol/L (22-30); Chloride 105 mmol/L (98-107); Glucose 129 mg/dl (70-99); Magnesium 1.9 mg/dl (1.6-2.3); Potassium 3.8 mmol/L (3.5-5.1); Sodium 138 mmol/L (135-145); Total Bilirubin 1.8 mg/dl (0.2-1.3); eGFR > 60.00
[2024-02-14 11:46] LABS: Troponin I < 0.012 ng/ml
--- NOTE | 2024-02-14 12:01 | HPS.HSE ---
Family Physician
-
Family Physician: NO INTERVIEW UNKNOWN
Chief Complaint
-
unresponsiveness
History of Present Illness
History is taken from ER staff and Pt's sister over the phone.
83-year-old male presented to the emergency department for evaluation with EMS after he was found to be reportedly diaphoretic, non verbal and decreased level of alertness at his memory care unit earlier this morning after eating breakfast. EMS was
notified and found the patient to be hypotensive and bradycardic at the facility. Patient was treated with 1 mg of atropine and approximately 200 mL of saline on his way to the hospital. Patient's heart rate noted to be bradycardic with a rate
between 50 and 62 bpm in ER with no hypotension, normal sinus rhythm. There were no reported fevers or any recent illnesses by the facility or staff. Patient is awake in ER , opens eyes to his name, seems confused and saying simple words only as (
Im feeling cold, No to pain in chest or abdomen).
Medical History
Past Medical History
Past Medical History: Reports Other (Dementia, seizure disorder, HTN, HLD)
Past Surgical History: Reports Other (No recent major surgery )
Social History
Unable to obtain full social history at this time due to: Dementia (and mostly non verbal )
Family History
Family History: Unable to Obtain (non verbal )
Allergies / Home Medications
Allergies reflects when Allergies were last updated in [facility].
Home Medications with original date entered in [facility]
Allergy/Medication List:
Allergies
Allergy/AdvReac Type Severity Reaction Status Date / Time
No Known Allergies Allergy Verified 09/28/23 15:43
Home Medications
acetaminophen 325 mg tablet (Tylenol) 650 mg PO BID 02/17/23
amlodipine 10 mg tablet (Norvasc) 10 mg PO DAILY@2000 Blood Pressure 02/17/23
atorvastatin 20 mg tablet (Lipitor) 20 mg PO DAILY High Cholesterol 02/17/23
folic acid 1 mg tablet 1 mg PO DAILY Supplement 02/17/23
furosemide 20 mg tablet 20 mg PO DAILY Fluid Retention/Swelling 02/17/23
lisinopril 20 mg-hydrochlorothiazide 25 mg tablet 1 tab PO DAILY Blood Pressure 02/17/23
calcium carbonate (Calcium 600) 600 mg PO DAILY Supplement 07/27/23
carboxymethylcellulose sodium 0.5 % eye drops (Refresh Tears) 1 drp BOTH EYES DAILY dry eyes 07/27/23
cyanocobalamin (vitamin B-12) 1,000 mcg tablet (Vitamin B-12) 1,000 mcg PO DAILY Supplement 07/27/23
levetiracetam 500 mg tablet (Keppra) 500 mg PO BID #60 tabs 10/10/23
ondansetron 4 mg disintegrating tablet 8 mg PO BIDPRN PRN nausea 02/14/24
pantoprazole 40 mg tablet,delayed release 40 mg PO DAILY 02/14/24
potassium chloride 8 mEq capsule,extended release 8 meq PO .3 TIMES WEEKLY 02/14/24
sertraline 100 mg tablet 100 mg PO HS 02/14/24
therapeutic multivitamin 1 tab PO DAILY 02/14/24
Review of Systems
-
Unable to obtain full review of systems at this time due to: Patient Non-verbal
Physical Exam
Vital Signs
Vital Signs
Temp Pulse Resp BP Pulse Ox
97.5 F 58 16 106/94 94
02/14/24 10:25 02/14/24 11:01 02/14/24 11:01 02/14/24 11:01 02/14/24 11:01
Physical Exam
General: No Apparent Distress
HEENT: Anicteric and Moist mucous membranes
Respiratory: Clear
Cardiac: S1/S2
GI: Soft, Non Tender and Non Distended
Rectal: No Maroon Stools
Genito-urinary: No costovertebral tender
Musculoskeletal: No Clubbing, No Cyanosis and No Edema
Skin: Warm and Dry
Neuro: Awake and Other (followed simple commands )
Psych: Calm and Confused
Laboratory Results
-
02/14/24 10:49
02/14/24 10:49
Laboratory Results
Lactic Acid 0.9 mmol/L (0.7-2.0) 02/14/24 10:54
Total Bilirubin 1.8 mg/dl (0.2-1.3) H 02/14/24 10:49
AST 25 U/L (17-59) 02/14/24 10:49
ALT 16 U/L (0-50) 02/14/24 10:49
Alkaline Phosphatase 49 U/L (38-126) 02/14/24 10:49
Troponin I < 0.012 ng/ml 02/14/24 10:49
Impression/Plan
-
83 years old mal with an [facility] of unresponsiveness and [facility]
# Change in mental status, abrupt.
Differential diagnosis include seizure/cardiac arrhythmia
The patient was given atropine inside because of reportedly hypotension and bradycardia heart rate around 40. Currently he seems to be hemodynamic stable with normal sinus rhythm. Negative troponin. Normal EKG. Chest x-ray showed Cardiomegaly
with mild congestive heart failure and small right pleural effusion. Patient denies chest pain
We will continue monitoring on telemetry. He is not on tawana blocking agents. No metabolic derangements.
Check TSH
According to his sister, patient went to breakfast and came back normal to his room and then staff found him diaphoretic and unresponsive
Possibility of seizure due to underlying seizure activity. CAT scan of the head showed no acute intracranial abnormalities with moderate diffuse cortical atrophy and old lacunar infarct in the left thalamus
Patient will need EEG. Will change Keppra to intravenous and increase the dose for now
Will consult neurology
Check CPK
No history of fever or chills. No leukocytosis. Normal lactic acid.
# History of primary hypertension.
Will monitor blood pressure in the hospital
# History of dementia/Alzheimer type. Continue sertraline.
# CODE STATUS, DNR, confirmed with sister.
Total time spent to see the patient, examine the patient, review data and lab results, and discuss the treatment plan with patient, sister of the patient, neurologist, ER doctor, and nurse around 75 minutes
[2024-02-14] MEDS: KEPPRA 1000 MG IV ×2 (13:58→20:08)
--- NOTE | 2024-02-14 13:59 | CON.NEURO4 ---
Documented by User: Carrie Cool NP 02/14/24 16:09
Consultation - Neurology 4
-
CONSULTING PHYSICIAN: Terry David MD
REFERRING PHYSICIAN: Hospitalists/Dr. Meza
DICTATED BY: LITA Dunn
DATE/TIME OF REQUEST: 02/14/24
DATE/TIME OF CONSULTATION: 02/14/24
Reason for Consultation: Possible seizure
History of Present Illness:
This is an 83-year-old male with a PMH of HTN, HLD, dementia, and seizures. who has presented to the hospital from memory care at the [facility] with report of decreased alertness, diaphoresis, and being nonverbal this morning after breakfast. EMS
arrived and found the patient to be hypotensive and bradycardic. They administered atropine 1mg and normal saline 200ml en route to the ER. On arrival in ER, patient's heart rate was between 50-62 NSR, bp 116/62. Patient was noted to be minimally
verbal, confused, and tremulous prompting Neurology consultation for concern of postictal state. CT head was obtained on arrival and is negative for any acute abnormalities but demonstrates an old left thalamic lacunar infarct which is demonstrated
on previous brain imaging. Currently, patient denies any headache, dizziness, vision changes, tongue bite, speech/swallow difficulty, numbness, focal weakness, chest pain, palpitations, and shortness of breath. No reported recent illnesses or fever.
Patient has never been evaluated by our Neurology service in the past. He is confused and unable to provide an accurate medical history. Per hospital records, it appears he was evaluated several times in [facility] ER this year for report of witnessed
generalized seizure activity. He was started on Keppra 500mg BID during ER visit on 09/27/23. He was then seen in the ER for report of another seizure on 10/10/23, and then comes in today (02/14/24) with possible seizure activity. Outpatient medical
records reviewed and there is no mention of any seizure history prior to September 2023.
Past Medical History: Dementia, seizure disorder, HTN, HLD
Surgical History: Unknown.
Family History: Reviewed and noncontributory.
Social History: Denies tobacco, alcohol, and illicit drug use.
Allergies: No known allergies.
Home Medications: See below.
Review of Symptoms:
Patient denies any fever, headache, chest pain, shortness of breath, GI or symptoms.
�Per the HPI.�All systems are reviewed negative except above.
Physical Exam:
The patient is afebrile, abdomen is nondistended, breathing is unlabored, skin is warm and dry, dry flaky skin on BLE, trace BLE edema.
Neurologic Examination:
The patient is lethargic. Opens eyes to loud voice. He is oriented to his name and birthday, otherwise confused pleasant conversation. He is able to follow one-step commands, severe difficulty with two-step commands. There is no aphasia or
dysarthria. On cranial nerve assessment, pupils are 4 mm bilateral, round and reactive to light and accommodation. Visual jaime appear full but are challenging to assess due to cooperation. Won't follow commands to assess EOMS but tracks in all
directions and no gaze deviation noted. There is no facial asymmetry. Hearing is diminished bilaterally to normal conversation volume. Tongue palate and uvula are midline. There is no tongue laceration. Motor strengths are 5/5 bilateral upper and
lower extremities on medical research [place] scale. There is no drift or involuntary movement noted currently. Deep tendon reflexes are 1+ bilateral upper and absent bilateral lower extremities and Babinski is absent bilaterally. There was no
extinction noted on double simultaneous stimulation. Coordination is intact by finger to nose bilaterally.
Lab Results: See below.
Neuro Imaging:
1. CT Head 02/14/24: There are no acute intracranial abnormalities. Stable lacunar infarct in the left thalamus. There is moderate diffuse cortical atrophy with moderate nonspecific white matter changes as described above.
2. EEG 02/14/24: Mildly-moderately abnormal study for age based on generalized slowing demonstrated bihemispherically equally. No epileptiform features were demonstrated.
Differentials for the patient's presentation include:
1. Change in mental status, unclear etiology.
2. Seizure possible.
3. Near syncopal event/poor cardiac perfusion in the setting of underlying dementia possibly contributing to altered mental status.
4. TME possibly contributing to change in mental status.
Patient has the following risk factors for their symptoms: Dementia, hypotension, bradycardia, hx seizures
Recommendations:
-Provide Keppra 1000mg IV x1 now. Continue increased dose of Keppra 1000mg IV q12hrs.
-Initiate aspirin 81mg PO daily due to chronic lacunar infarct seen on CT head imaging.
-Seizure precautions.
-Checking blood work for metabolic abnormalities.
-PT/OT evaluations.
-DVT prophylaxis.
Discussed patient care with: Dr. David, nursing staff
Vital Signs and Labs
-
Vital Signs and Labs:
Vital Signs
Temp Pulse Resp BP Pulse Ox
97.5 F 63 16 134/71 91
02/14/24 10:25 02/14/24 14:30 02/14/24 14:30 02/14/24 13:02 02/14/24 14:30
Lab Results
02/14/24 10:49
02/14/24 10:49
Sodium 138 mmol/L (135-145) 02/14/24 10:49
Potassium 3.8 mmol/L (3.5-5.1) 02/14/24 10:49
BUN 26 mg/dl (9-20) H 02/14/24 10:49
Glucose 129 mg/dl (70-99) H 02/14/24 10:49
Calcium 8.6 mg/dl (8.4-10.2) 02/14/24 10:49
Medications
-
Home Medications
�Medication �Instructions �Recorded
acetaminophen 325 mg tablet 650 mg PO BID 02/17/23
(Tylenol)
amlodipine 10 mg tablet (Norvasc) 10 mg PO DAILY@2000 Blood Pressure 02/17/23
atorvastatin 20 mg tablet (Lipitor) 20 mg PO DAILY High Cholesterol 02/17/23
folic acid 1 mg tablet 1 mg PO DAILY Supplement 02/17/23
furosemide 20 mg tablet 20 mg PO DAILY Fluid 02/17/23
Retention/Swelling
lisinopril 20 1 tab PO DAILY Blood Pressure 02/17/23
mg-hydrochlorothiazide 25 mg tablet
calcium carbonate (Calcium 600) 600 mg PO DAILY Supplement 07/27/23
carboxymethylcellulose sodium 0.5 1 drp BOTH EYES DAILY dry eyes 07/27/23
% eye drops (Refresh Tears)
cyanocobalamin (vitamin B-12) 1,000 mcg PO DAILY Supplement 07/27/23
1,000 mcg tablet (Vitamin B-12)
levetiracetam 500 mg tablet 500 mg PO BID #60 tabs 10/10/23
(Keppra)
ondansetron 4 mg disintegrating 8 mg PO BIDPRN PRN nausea 02/14/24
tablet
pantoprazole 40 mg tablet,delayed 40 mg PO DAILY 02/14/24
release
potassium chloride 8 mEq 8 meq PO .3 TIMES WEEKLY 02/14/24
capsule,extended release
sertraline 100 mg tablet 100 mg PO HS 02/14/24
therapeutic multivitamin 1 tab PO DAILY 02/14/24

Documented by User: Terry David MD 02/14/24 20:24
Consultation - Neurology 4
-
Total Time Spent with Patient (in minutes): 30
[2024-02-14 14:20] LABS: Creatine Phosphokinase 179 U/L (55-170)
--- NOTE | 2024-02-14 15:22 | EEG.RPT ---
Electroencephalogram Report
Recording
Date of EE02/14/24
Type of EEG: Routine
Length of EEG recordin minute
Done with Video Recording: No
Patient Status: Inpatient
Recording Conditions: Awake and Drowsy
Hyperventilation Performed: No
Photic Stimulation Performed: Yes
Report
LESS THAN 1 HOUR EEG REPORT
LESS THAN 1 HOUR EEG INTERPRETATION:
Mildly-moderately abnormal study for age based on generalized slowing demonstrated bihemispherically equally
CLINICAL CORRELATION:
Although normative values not been established for a person of this advanced age the patient�s symmetry of the background suggests that this study was suggestive of mild bihemispheric cortical dysfunction. No epileptiform features were demonstrated.
If concerns remain regarding epilepsy, prolonged monitoring may be of assistance.
Clinical correlation is advised.
METHODS:
A 21-channel digital electroencephalogram (EEG) was performed in the [facility]. The 10/20 international system of electrode placement was used with ECG and lateral/vertical eye movements recorded. [employer] system
quantitative analysis was performed.
IMPRESSION(S):
Quality of study
Fair, with muscle artifact frequently
Background
Low-medium amplitude
Anterior-posterior voltage gradient differentiation: Fair
Theta frequency maximal background demonstrated
Sleep
Drowsiness present
Hyperventilation
Not performed
Photic Stimulation
Failed to activate the record
ECG
Normal rhythm
[2024-02-14 16:11] LABS: Urine Albumin Negative (Neg - Trace); Urine Bilirubin Negative (Negative); Urine Character Clear (Clear); Urine Color Yellow; Urine Glucose Negative (Negative); Urine Ketone Negative (Negative); Urine Leukocyte Negative (Negative); Urine Nitrite Negative (Negative); Urine Occult Blood Negative (Negative); Urine Specific Gravity 1.005 (<1.030); Urine Urobilinogen Negative (Neg - 1+)
[2024-02-14 16:20] LABS: Creatine Phosphokinase 209 U/L (55-170)
[2024-02-14 17:32] LABS: TSH Reflex To Free T4 2.26 uIU/ml (0.47-4.68)
[2024-02-14 17:36] LABS: Ferritin 90.8 ng/ml (17.9-464.0)
[2024-02-14 18:08] LABS: Folate > 20.0 ng/ml (2.76-20); Vitamin B12 > 1000 pg/ml (239-931)
[2024-02-14] MEDS: FLUSH (NSS) 2 FLUSH IV (18:32)
[2024-02-14] MEDS: APRESOLINE 5 MG IV (18:32)
[2024-02-14] MEDS: DESENEX/MITRAZOL/ZEASORB 1 APPLIC TOPICAL (20:07)
[2024-02-14] MEDS: HEPARIN 5000 UNITS SC (20:07)
[2024-02-14] MEDS: NORVASC 10 MG PO (20:08)
[2024-02-14] MEDS: TYLENOL 650 MG PO (20:09)
[2024-02-14] MEDS: ZOLOFT 100 MG PO (20:29)
--- NOTE | 2024-02-14 23:44 | PTCARENOTE ---
Patient refused 2300 vital signs. Refused to let staff touch him. Staff educated about importance of VS, still refused. Call ojeda is within reach.
[2024-02-15] VITALS (7 sets, daily range): BP systolic 119–152; BP diastolic 57–78; PULSE 65; O2SAT 97–100
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
[2024-02-15] MEDS: KEPPRA 500 MG PO (10:12)
[2024-02-15] MEDS: DESENEX/MITRAZOL/ZEASORB 1 APPLIC TOPICAL ×2 (10:12→19:32)
[2024-02-15] MEDS: HEPARIN 5000 UNITS SC ×2 (10:12→19:32)
[2024-02-15] MEDS: LOW STRENGTH ASPIRIN 81 MG PO (10:13)
[2024-02-15] MEDS: TYLENOL 650 MG PO ×2 (10:13→19:31)
[2024-02-15] MEDS: PROTONIX 40 MG PO (10:13)
--- NOTE | 2024-02-15 10:35 | W.PN.NEURO.1 ---
Today's Communication / Plan
-
.
Neuro Assessment/Plan
Assessment
This is an 83-year-old male with a PMH of dementia, seizure disorder, HTN, and HLD who presented to the ER on 02/14/24 from the [facility] with report of diaphoresis, being nonverbal, hypotension, bradycardia, and tremors witnessed in the ER.
-CT Head 02/14/24: There are no acute intracranial abnormalities. Stable lacunar infarct in the left thalamus. There is moderate diffuse cortical atrophy with moderate nonspecific white matter changes as described above.
-EEG 02/14/24: Mildly-moderately abnormal study for age based on generalized slowing demonstrated bihemispherically equally. No epileptiform features were demonstrated.
I. Change in mental status, unclear etiology; likely due to either near syncopal event in the setting of hypoperfusion vs breakthrough seizure.
II. Dementia.
Plan
-Okay to increase home Keppra from 500mg to 750mg PO BID in the event this may have been a seizure.
-Initiate aspirin 81mg PO daily due to chronic lacunar infarct seen on CT head imaging.
-Seizure precautions.
-PT/OT evaluations.
-Minimize sedation, avoid benzodiazepines, encourage adequate daylight exposure. Minimize daytime napping and nighttime awakenings.
-DVT prophylaxis.
-Patient needs outpatient follow-up with Neurology, may see the [facility] or one of the physicians.
Subjective/Objective
Subjective Data
Date of Service: February 15, 2024
No acute events overnight. Patient very distractible/lacking insight to recent events. He denies any headache, dizziness, vision changes, speech/swallow difficulty, numbness, weakness, chest pain, palpitations, and shortness of breath.
Objective Data
Vital Signs
Temp Pulse Resp BP Pulse Ox
97.9 F 57 16 150/78 93
02/15/24 07:45 02/15/24 07:45 02/15/24 07:45 02/15/24 07:45 02/15/24 07:45
Lab Results
02/14/24 10:49
02/14/24 10:49
Sodium 138 mmol/L (135-145) 02/14/24 10:49
Potassium 3.8 mmol/L (3.5-5.1) 02/14/24 10:49
BUN 26 mg/dl (9-20) H 02/14/24 10:49
Glucose 129 mg/dl (70-99) H 02/14/24 10:49
Calcium 8.6 mg/dl (8.4-10.2) 02/14/24 10:49
Vitamin B12 > 1000 pg/ml (239-931) H 02/14/24 10:49
Patient Allergies
No Known Allergies Allergy (Verified 09/28/23 15:43)
Review of Systems
-
History Source: Patient
EENT: Negative Blurry Vision, Decreased Vision or Swallowing Difficulty
Respiratory: Negative Cough or Trouble Breathing
Cardiac: Negative Chest Pain or Palpitations
Abdomen/GI: Negative Nausea
Neuro: Negative Dizzy, Headache, Weakness, Numbness, Ataxia, Tremors or Speech Problem
Physical Exam
-
General: No Apparent Distress
HEENT: Normocephalic and Atraumatic
Neck: Full Range of Motion
Respiratory: No Dyspnea
GI: Non-distended
Extremities: Edema +1
Psych: Confused
Extended Neurological Exam
Mood & Affect: Anxious
Attention Span & Concentration: Awake, Alert, Interactive and Moderate Difficulty with 2 Step Request
Memory: Reduced (oriented to self only, no place, time, or situation)
Tremor: Head Tremor Absent and Rhythmic Distal 3/sec (Right hand); Negative Hand Tremor Absent
Involuntary Movement: Negative Asterixis
Speech: Quality Unremarkable, Quantity Unremarkable and Rate of Production Unremarkable
Cranial Nerve II: Left Eye: Pupillary Reactivity Unremarkable, Pupillary Size Unremarkable and Visual Bullard Intact
Cranial Nerve II: Right Eye: Pupillary Reactivity Unremarkable, Pupillary Size Unremarkable and Visual Bullard Intact
Cranial Nerves III, IV, : Extraocular Movement: Extraocular Movement Full in all Directions
Cranial Nerve VII: Facial Symmetry: Normal Facial Symmetry
Cranial Nerve VIII: Hearing: Grossly Reduced
Cranial Nerves IX, X: Palate Movement: Palate Elevation Symmetric
Cranial Nerve XII: Tongue Protusion: Midline
Muscle Strength, Overall: Full Throughout
Muscle Bulk & Tone: Bulk Unremarkable and Tone Unremarkable
Pronator Drift: No Drift in Upper Extremities and No Drift in Lower Extremities
Coordination: [id number] Testing Unremarkable
Data Reviewed
-
CT Head: Report Reviewed and Image Reviewed
EEG: Report Reviewed
Labs: Report Reviewed
Reviewed with: Physician and Patient
Medications
-
Active Medications
Generic Name Dose Route Start Last Admin
Trade Name Freq PRN Reason Stop Dose Admin
Acetaminophen 650 mg 02/14/24 20:00 02/15/24 10:13
Acetaminophen 325 Mg Tablet PO 03/13/24 19:59 650 mg
BID MADISYN Administration
Amlodipine Besylate 10 mg 02/14/24 20:00 02/14/24 20:08
Amlodipine 10 Mg Tablet PO 03/13/24 19:59 10 mg
DAILY@2000 MADISYN Administration
Aspirin 81 mg 02/15/24 08:00 02/15/24 10:13
Aspirin 81 Mg Chewable Tablet PO 03/14/24 07:59 81 mg
DAILY MADISYN Administration
Heparin Sodium 5,000 units 02/14/24 20:00 02/15/24 10:12
Heparin 5,000 Units/Ml 1 Ml Vial SC 03/13/24 19:59 5,000 units
Q12 MADISYN Administration
Hydralazine HCl 5 mg 02/14/24 15:26 02/14/24 18:32
Hydralazine 20 Mg/Ml Vial IV 03/13/24 15:25 5 mg
Q4HPRN PRN Administration
sbp more than 155
Levetiracetam 750 mg 02/15/24 20:00
Levetiracetam Solution (500 Mg/5 Ml) Cup PO 03/14/24 19:59
BID MADISYN
Lisinopril 20 mg 02/15/24 12:00
Lisinopril 20 Mg Tablet PO 03/14/24 11:59
DAILY MADISYN
Miconazole Nitrate 0 applic 02/14/24 20:00 02/15/24 10:12
Miconazole Powder Bottle TOPICAL 03/13/24 19:59 1 applic
BID MADISYN Administration
Pantoprazole Sodium 40 mg 02/15/24 08:00 02/15/24 10:13
Pantoprazole 40 Mg Delayed Release Tablet PO 03/14/24 07:59 40 mg
DAILY MADISYN Administration
Risperidone 0.25 mg 02/15/24 11:02
Risperidone 0.25 Mg Tablet PO 03/14/24 11:01
Q8HPRN PRN
agitation
Sertraline HCl 100 mg 02/14/24 22:00 02/14/24 20:29
Sertraline 100 Mg Tablet PO 03/13/24 21:59 100 mg
HS MADISYN Administration
Sodium Chloride 0 flush 02/14/24 17:00 02/14/24 18:32
Sodium Chloride 0.9% (Flush) Syringe IV 03/13/24 16:59 2 flush
PER PROTOCOL MADISYN Administration
Home Medications
�Medication �Instructions �Recorded
acetaminophen 325 mg tablet 650 mg PO BID 02/17/23
(Tylenol)
amlodipine 10 mg tablet (Norvasc) 10 mg PO DAILY@2000 Blood Pressure 02/17/23
atorvastatin 20 mg tablet (Lipitor) 20 mg PO DAILY High Cholesterol 02/17/23
folic acid 1 mg tablet 1 mg PO DAILY Supplement 02/17/23
furosemide 20 mg tablet 20 mg PO DAILY Fluid 02/17/23
Retention/Swelling
lisinopril 20 1 tab PO DAILY Blood Pressure 02/17/23
mg-hydrochlorothiazide 25 mg tablet
calcium carbonate (Calcium 600) 600 mg PO DAILY Supplement 07/27/23
carboxymethylcellulose sodium 0.5 1 drp BOTH EYES DAILY dry eyes 07/27/23
% eye drops (Refresh Tears)
cyanocobalamin (vitamin B-12) 1,000 mcg PO DAILY Supplement 07/27/23
1,000 mcg tablet (Vitamin B-12)
levetiracetam 500 mg tablet 500 mg PO BID #60 tabs 10/10/23
(Keppra)
ondansetron 4 mg disintegrating 8 mg PO BIDPRN PRN nausea 02/14/24
tablet
pantoprazole 40 mg tablet,delayed 40 mg PO DAILY 02/14/24
release
potassium chloride 8 mEq 8 meq PO .3 TIMES WEEKLY 02/14/24
capsule,extended release
sertraline 100 mg tablet 100 mg PO HS 02/14/24
therapeutic multivitamin 1 tab PO DAILY 02/14/24
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
--- NOTE | 2024-02-15 10:44 | W.PN.HOSP.TC ---
Today's Communication/Plan
-
likely dc in am
continue with telemetry if possible
Might need PRN medicine for agitation, will add low dose
Await PT/OT
Assessment / Plan
Assessment / Plan
Physical Exam
General: No Apparent Distress
HEENT: Anicteric and Moist mucous membranes
Respiratory: Clear
Cardiac: S1/S2
GI: Soft, Non Tender and Non Distended
Rectal: No Maroon Stools
Genito-urinary: No costovertebral tender
Musculoskeletal: No Clubbing, No Cyanosis and No Edema
Skin: Warm and Dry
Neuro: Awake and Other (followed simple commands )
Psych: Calm and Confused
83 years old mal with an episode of un[facility]iveness and [facility]
# Change in mental status, abrupt.
Likely due to seizure
Doubt cardiac arrhythmia at this point as pt seems mostly postictal upon arriving to ER, elevated CPK. Also Normal EKG/negative troponin BUT will continue monitoring telemetry as long as he is able to keep it on to rule out heart block.
In history, the patient was given atropine inside because of reportedly hypotension and bradycardia heart rate around 40. According to his sister, patient went to breakfast and came back normal to his room and then staff found him diaphoretic and
unresponsive, unable to talk
Chest x-ray showed Cardiomegaly with mild congestive heart failure and small right pleural effusion. Patient denied chest pain
He is not on tawana blocking agents. No metabolic derangements.
Normal TSH
Echo in 2022, normal LVEF with no significant valvular heart disease.
CAT scan of the head showed no acute intracranial abnormalities with moderate diffuse cortical atrophy and old lacunar infarct in the left thalamus
EEG no seizure activity
c/w Keppra, increased home dose
No history of fever or chills. No leukocytosis. Normal lactic acid.
Appreciate neurology input.
# History of primary hypertension.
Resume home meds
# History of dementia/Alzheimer type. Continue sertraline.
# CODE STATUS, DNR, confirmed with sister.
Total time spent to see the patient, examine the patient, review data and lab results, and discuss the treatment plan with patient, sister of the patient, neurologist, and nurse around 55 minutes
Anticipated Discharge: Within 24 hours
Subjective/Interval History
-
Date of Service: February 15, 2024
Objective Data
-
Vital Signs:
Vital Signs
Temp Pulse Resp BP Pulse Ox
97.9 F 57 16 150/78 93
02/15/24 07:45 02/15/24 07:45 02/15/24 07:45 02/15/24 07:45 02/15/24 07:45
I&O
02/14/24 02/15/24 02/16/24
06:59 06:59 06:59
Intake Total 120 / 120
Output Total 300 / 300
Balance -180 / -180
[2024-02-15] MEDS: KEPPRA IV (12:00)
[2024-02-15] MEDS: KEPPRA 250 MG PO (12:38)
[2024-02-15] MEDS: ZESTRIL 20 MG PO (12:39)
[2024-02-15] MEDS: NORVASC 10 MG PO (19:31)
[2024-02-15] MEDS: ZOLOFT 100 MG PO (19:32)
[2024-02-15] MEDS: KEPPRA 750 MG PO (19:33)
[2024-02-16 03:36] VITALS: BP 159/80
[2024-02-16] MEDS: APRESOLINE 5 MG IV ×2 (03:53→08:33)
[2024-02-16 07:43] VITALS: BP 161/77
[2024-02-16] MEDS: DESENEX/MITRAZOL/ZEASORB 1 APPLIC TOPICAL (08:28)
[2024-02-16] MEDS: PROTONIX 40 MG PO (08:28)
[2024-02-16] MEDS: RISPERDAL 0.25 MG PO (08:28)
[2024-02-16] MEDS: ZESTRIL 20 MG PO (08:28)
[2024-02-16] MEDS: LOW STRENGTH ASPIRIN 81 MG PO (08:28)
[2024-02-16] MEDS: TYLENOL 650 MG PO (08:29)
[2024-02-16] MEDS: HEPARIN 5000 UNITS SC (08:29)
[2024-02-16] MEDS: KEPPRA 750 MG PO (08:29)
--- NOTE | 2024-02-16 08:54 | CM ---
Addendum entered by Eliza Bartlett 02/16/24 11:58:
CM spoke with patients sister, Ree, [facility] over phone. Patient scheduled for 1:00 p.m. ambulance transport. CM updated nurse Justin at [facility].
Plan; return to [facility], 1:00 p.m. ambulance transport, will need script for PT/OT
[facility]

Addendum entered by Eliza Bartlett 02/16/24 10:20:
CM spoke with patients nurse, Justin, at [facility]. Per Justin, patient resides in Memory Care, patient typically ambulates independently with a rolling walker. CM discussed PT recommendation of home health, [facility] has in home therapy, will need script
for PT/OT upon discharge. CM will continue to follow for all discharge planning needs.
Plan; return to [facility], will need script for PT/OT.
[facility]

Original Note:
CM placed another call to [facility] to discuss PT recommendation of home health and to confirm patients prior level of functioning. CM requested return call as patient may be clear for discharge today. CM will continue to follow for all discharge
planning needs.
Plan; return to [facility], will likely need script for PT/OT upon discharge.
[2024-02-16 11:22] VITALS: BP 137/52
--- NOTE | 2024-02-16 13:22 | W.DCSUMMARY ---
Discharge Summary
Discharge Data
Date of Admission: 02/14/24
Date of Discharge: 02/16/24
-
Pending Results: No
Hospital Course
83 years old male who was found diaphoretic, nonverbal and diaphoretic at the longterm. Patient was normal before the incidence. Emergency personnel arrived and noticed bradycardia, patient was given atropine and was brought to the emergency
room. In the emergency room, he did not have hypotension or bradycardia. Patient was noticed to be confused and unable to answer questions. Patient was diagnosed with seizure and postictal syndrome. Patient subsequently improved.
Electroencephalogram did not show persistent seizure activity. He did not have metabolic abnormalities or leukocytosis or evidence of active infection. Scan of the head did not show acute findings. Patient was evaluated by neurologist and
recommended to increase dose of Keppra. Patient remained hemodynamically stable and did not have further episodes of confusion or diaphoresis. He was monitored on telemetry without cardiac dysrhythmias or bradycardia episodes. Patient was
evaluated by physical therapy and recommended outpatient therapy. Patient was discharged in a stable condition.
Physical Exam
General: No Apparent Distress
HEENT: Anicteric and Moist mucous membranes
Respiratory: Clear
Cardiac: S1/S2
GI: Soft, Non Tender and Non Distended
Rectal: No Maroon Stools
Genito-urinary: No costovertebral tender
Musculoskeletal: No Clubbing, No Cyanosis and No Edema
Skin: Warm and Dry
Neuro: Awake disoriented to time and place. Followed commands.
Psych: Calm and Confused.
Total discharge time spent to see the patient, examine the patient, review data and lab results, and discuss the discharge plan with patient, pillowcase cutter, nurse around 65 minutes
Discharge Plan
-
Patient Disposition: Snf/SNF
Discharge Diagnosis/Procedures: Seizure disorder
Diet: As tolerated
Referrals:
Terry David MD [Active] - in one month
UNKNOWN,NO INTERVIEW [Family Provider] -
Prescriptions:
New
levetiracetam [Keppra] 750 mg tablet
750 mg PO Q12H Qty: 60 0RF
aspirin 81 mg Tablet,Chewable
81 mg PO DAILY Qty: 30 0RF
Continued
acetaminophen [Tylenol] 325 mg Tablet
650 mg PO BID
atorvastatin [Lipitor] 20 mg Tablet
20 mg PO DAILY
amlodipine [Norvasc] 10 mg Tablet
10 mg PO DAILY@1999
folic acid 1 mg Tablet
1 mg PO DAILY
lisinopril-hydrochlorothiazide 20-25 mg Tablet
1 tab PO DAILY
furosemide 20 mg Tablet
20 mg PO DAILY
cyanocobalamin (vitamin B-12) [Vitamin B-12] 1,000 mcg Tablet
1,000 mcg PO DAILY
calcium carbonate [Calcium 600] 600 mg calcium (1,500 mg) Tablet
600 mg PO DAILY
carboxymethylcellulose sodium [Refresh Tears] 0.5 % Drops
1 drp BOTH EYES DAILY
potassium chloride 8 mEq Capsule, Extended Release
8 meq PO .3 TIMES WEEKLY
sertraline 100 mg Tablet
100 mg PO HS
therapeutic multivitamin Tablet
1 tab PO DAILY
pantoprazole 40 mg Tablet,Delayed Release (Dr/Ec)
40 mg PO DAILY
ondansetron 4 mg Tablet,Disintegrating
8 mg PO BIDPRN PRN (Reason: nausea)
Discontinued
levetiracetam [Keppra] 500 mg tablet
500 mg PO BID Qty: 60 0RF
Discharge Orders:
Discharge Patient (As Directed); Ordered 02/16/24
Ordered By: Mino Meza
Discharge Date and Time
Discharge Date/Time: 02/16/24 13:17
Print Language: MALAGASY
--- NOTE | 2024-02-21 14:22 | PN.CDI ---
Addendum entered and electronically signed by Mino Meza MD 02/26/24 06:19:
Toxic Metabolic Encephalopathy due to breakthrough seizure
Original Note:
CDI
- -
CDI:
Physician Documentation Request
Admit Date: 02/14/24 12:20
Dear Doctor Susana,
Please review the following and provide your response in the progress notes.
Clinical Indicators:
H+P, 02/13
# Change in mental status, abrupt.
#Differential diagnosis include seizure/cardiac arrhythmia
# History of dementia/Alzheimer type.
Neuro, consult, 02/13
Differentials for the patient's presentation include:
1. Change in mental status, unclear etiology.
2. Seizure possible.
3. Near syncopal event/poor cardiac perfusion in the setting of underlying dementia possibly contributing to altered mental status.
4. TME possibly contributing to change in mental status.
#Patient has the following risk factors for their symptoms:
#....Dementia, hypotension, bradycardia, hx seizures
Neuro, PN, 02/14
#Change in mental status, unclear etiology;
#...likely due to either near syncopal event in the setting of
#...hypoperfusion vs breakthrough seizure.
#Dementia.
PN, 02/14
# Change in mental status, abrupt.
#Likely due to seizure
Based on the above and your clinical assessment, please clarify in the Progress Notes and Discharge Summary which, if any of the following, is the most likely etiology altered mental status.
Multifactorial - Toxic Metabolic Encephalopathy (specify if due to breakthrough seizure, postictal, progression of dementia/Alzheimer's, hypotension, other etc.)
Other Encephalopathy
Altered mental status, only
Other (please specify)
Use of terms such as suspected, likely, concern for, or probable (associated with a specific diagnosis that is being evaluated, monitored, or treated as if it exists) are acceptable and can be coded in the inpatient setting, when documented at the
time of discharge.
Thank you,
Fouzia Mcnulty RN BSN CCDS
CDI Specialist
please contact via tiger text
Please use your independent medical judgment in providing your response.
== END 2024-02-16 13:17 | disposition home or self-care (01) | DRG 100 ==
LOC: 4 EAST ACU 12:20
PROVIDERS: Physician Assistant Medical; ADMITTING PHYSICIAN Internal Medicine; CONSULT PHYSICIAN Psychiatry & Neurology Neurology; EMERGENCY PHYSICIAN Emergency Medicine
DX: G40.802 Other epilepsy, not intractable, without status epilepticus (principal); G92.8 Other toxic encephalopathy; G30.9 Alzheimer's disease, unspecified; F02.80 Dementia in other diseases classified elsewhere, unspecified severity, without behavioral disturbance, psychotic disturbance, mood disturbance, and anxiety; I10 Essential (primary) hypertension; E78.00 Pure hypercholesterolemia, unspecified; R00.1 Bradycardia, unspecified; I95.9 Hypotension, unspecified; Z79.899 Other long term (current) drug therapy; Z66 Do not resuscitate
CPT/HCPCS: 70450; 71045; 80053; 81003; 82550; 82607; 82728; 82746; 82962; 83605; 83735; 84443; 84484; 85025; 87070; 87811; 93005; 95816; 97162; 97166; 99285

== ENCOUNTER → 2024-11-28 14:00 | Outpatient (REF) | payer OTHER, SELFPAY ==
[2024-11-28 17:49] LABS: Urine Albumin 1+ (Neg - Trace); Urine Bilirubin Negative (Negative); Urine Character Clear (Clear); Urine Color Yellow; Urine Glucose Negative (Negative); Urine Ketone Negative (Negative); Urine Leukocyte 1+ (Negative); Urine Nitrite Negative (Negative); Urine Occult Blood Negative (Negative); Urine Urobilinogen Negative (Neg - 1+)
[2024-11-28 17:54] LABS: Urine Bacteria Few (Negative); Urine Mucus Few; Urine Red Blood Cell 0-2 /HPF (0-2); Urine Squamous Cell 0-2 /LPF (Few)
== END ==
LOC: OLABSOL 14:00
PROVIDERS: ATTENDING PHYSICIAN Hospitalist
DX: N39.0 Urinary tract infection, site not specified (principal)
CPT/HCPCS: 81003; 81015; 87086